=== PATIENT | female | born 1980 | race Caucasian/White ===

== ENCOUNTER → 2021-05-27 12:57 | Outpatient (REF) | payer OTHER, SELFPAY ==
--- NOTE | 2021-05-27 | ECG_ITS ---
Hook-up date: 2021-05-27 13:14:00 Duration: 26:11:00 Test Indications: PALPITATIONS Medications: 650121 QRS complexes * Ventricular ectopics which represent % of total QRS comp. 149 Supraventricular ectopics which represent <1 % of total QRS comp. * Paced QRS complexs which represent % of total QRS comp. VENTRICULAR ECTOPY * Isolated * Bigeminal Cycles * Couplets * Runs * Beats in Runs * Beats LONGEST at * BPM at :: -- * Beats FASTEST at * BPM at :: -- SUPRAVENTRICULAR ECTOPY 137 Isolated 0 Couplets 1 Runs 12 Beats in Runs 12 Beats LONGEST at 135 BPM at 15:14:46 2021-05-27 12 Beats FASTEST at 135 BPM at 15:14:46 2021-05-27 HEART RATES 58 MIN at 07:24:07 2021-05-28 92 AVG 145 MAX at 16:07:09 2021-05-27 LONGEST RR 1.1040 secs at 07:16:29 2021-05-28 S-T LEVELS Channel 1 - 128 mm at 13:14:00 2021-05-27 - 128 mm at 13:14:00 2021-05-27 Channel 2 - 128 mm at 13:14:00 2021-05-27 - 128 mm at 13:14:00 2021-05-27 Channel 3 - 128 mm at 03:23:31 -- - 128 mm at 03:23:31 Basic rhythm Normal sinus rhythm No long pause or profound bradycardia Occasional Premature atrial complexes One 12 beat run of PAT at 135 bpm Patient did not report any symptoms in the diary Referred By: Brandt Galvan Overread By: BORIS CARBAJAL MD
== END ==
LOC: HO.CARD 12:57
PROVIDERS: PCP Internal Medicine; Visit Provider Internal Medicine
DX: R00.2 Palpitations (principal)
CPT/HCPCS: 93226

== ENCOUNTER 2022-03-01 03:48 | Emergency (ER) | payer OTHER, SELFPAY ==
[2022-03-01 04:16] VITALS: BP 168/87; PULSE 86; RESP 16; TEMP 36.5; O2SAT 96; BMI 53.0
--- NOTE | 2022-03-01 05:50 | ED_ITS ---
HPI - General Adult General Chief complaint: General Medical Stated complaint: Rectal pain Time Seen by Provider: 03/01/22 05:23 Source: patient Mode of arrival: ambulatory History of Present Illness HPI narrative: 42-year-old female with a history of IBS comes in for rectal pain that initially started on Tuesday and has persisted throughout the weekend with exacerbation by bowel movements and she has noted some bleeding after pooping. She denies any fever, chills, shortness of breath, chest pain/palpitations. Related Data Allergies Allergy/AdvReac Type Severity Reaction Status Date / Time No Known Allergies Allergy Unknown NONE Unverified 01/31/20 17:03 seafood Allergy Unknown anaphylaxis Uncoded 04/14/16 00:00 Review of Systems Review of Systems: Pertinent positives and negatives as stated in HPI 10 point review of systems is otherwise negative. PMFSH Past Medical History Source: nursing notes reviewed Social History Social History Advance Directives: No Advance Directives Information Provided: No Physical Exam ED Vital Signs: Vital Signs - 24 hr 03/01/22 04:16 Temperature 97.7 F Pulse Rate 86 Respiratory Rate 16 Blood Pressure 168/87 H Pulse Oximetry 96 Oxygen Delivery Method Room Air BMI result Body Mass Index 53.0 VITAL SIGNS: Reviewed. GENERAL: Well developed, well nourished, in no acute distress. HEAD: Normocephalic/atraumatic EYES: PERRLA, EOMI EARS: Ext canals without abnormality OROPHARYNX: no oral lesions noted, posterior pharynx clear LUNGS: Normal breath sounds. No adventitious sounds or accessory muscle use. SpO2<96> CARDIOVASCULAR: Regular rate and rhythm without noted murmurs ABDOMEN: Soft, non-tender, non-distended with bowel sounds. CORINNE: There are noninflamed hemorrhoids noted but fissure identified on 3 o'clock position, brown stool no blood noted MUSCULOSKELETAL: No tenderness, deformities, or effusions noted on gross inspection. EXTREMITIES: No cyanosis, clubbing or edema. SKIN: Inspection of the skin reveals no rashes NEUROLOGIC: Alert and oriented x 4. Strength and sensation to light touch were grossly intact x 4. Course Course Course Narrative: 42-year-old female with history and clinical presentation consistent with fissure likely secondary to multiple episodes of diarrhea. Patient is otherwise hemodynamically stable, and received lidocaine for topical application. Patient is otherwise discharged home in stable condition. Discharge Plan Discharge Clinical Impression: Anal fissure Patient Disposition: Home, Self-Care Instructions: Anal Fissure (ED), Sitz Bath (DC) Additional Instructions: 1. Apply the viscous lidocaine every 6 hours as needed for symptom relief. 2. Recommend using a donut for relief of pressure on your rectum. 3. Also recommend Sitz baths after each bowel movement. 4. Follow-up with your primary care provider in the next 2-3 days for re- evaluation and further outpatient management. Return to the ER for worsening symptoms. Referrals: Brandt Wong MD [Primary Care Provider] - Stand Alone Forms: Work/School Release
[2022-03-01] MEDS: Lidocaine HCl 2 % Urojet 10 ML JEL.PF.APP TOPICAL (05:57)
== END 2022-03-01 06:03 | disposition home or self-care (01) ==
PROVIDERS: Emergency Provider Student in an Organized Health Care Education/Training Program; PCP Internal Medicine
DX: K60.2 Anal fissure, unspecified (principal); R19.7 Diarrhea, unspecified
CPT/HCPCS: 99283

== ENCOUNTER 2022-04-10 16:19 | Emergency (ER) | payer MEDICAID, SELFPAY ==
--- NOTE | 2022-04-10 17:08 | ED.GENADULT ---
HPI - General Adult General Chief complaint: GI Bleed Stated complaint: rectal pain Time Seen by Provider: 04/10/22 18:30 Related Data Previous Rx's Medication Instructions Recorded dibucaine 1 % topical ointment 1 appl topical QID PRN Rectal pain 04/10/22 #30 grams Allergies Allergy/AdvReac Type Severity Reaction Status Date / Time No Known Allergies Allergy Unknown NONE Unverified 01/31/20 17:03 seafood Allergy Unknown anaphylaxis Uncoded 04/14/16 00:00 Physical Exam ED Vital Signs: BMI result Body Mass Index 51.9 Course Course Course Narrative: RME: Patient is a 42 year old female with pmhx diabetes, asthma who presents to the ED for rectal pain. States she was diagnosed with internal hemorrhoids 1 month ago. Reports worsening pain, rectal bleeding, bright red blood. Has tried topical creams without improvement. Denies fevers, chills, nausea, vomiting, constipation or diarrhea. Denies dizziness, lightheadedness, chest pain, shortness of breath. Plan: Requires rectal examination. Medications Administered Discontinued Medications Generic Name Dose Route Start Last Admin Trade Name Freq PRN Reason Stop Dose Admin Dibucaine 1 appl 04/10/22 18:36 04/10/22 20:44 Dibucaine 1 % Oint 28 Gm Tube TOPICAL 04/10/22 18:37 1 appl ONCE ONE Administration Protocol Hydrocortisone 1 appl 04/10/22 18:36 04/10/22 20:45 Hydrocortisone 2.5 % Rectal Cr 30 Gm Tube [place] 04/10/22 18:37 1 appl ONCE ONE Administration Oxycodone HCl 5 mg 04/10/22 19:23 04/10/22 19:49 Oxycodone Hcl Immed Release 5 Mg Tablet PO 04/10/22 19:24 5 mg ONCE ONE Administration Discharge Plan Discharge Clinical Impression: Hemorrhoids, Pain in rectum, Rectal bleeding Patient Disposition: Home, Self-Care Instructions: Hemorrhoids (ED), Rectal Bleeding (ED), Rectal Pain (ED) Additional Instructions: Please use Dibucaine and hydrocortisone cream as directed. I have referred you to Dr. Ward for surgical consult for hemorrhoidectomy. Please call and request an appointment. Follow-up with Dr. Webster for colonoscopy. While you do have known hemorrhoids, you do have rectal pain and rectal bleeding. Rectal bleeding could indicate colon cancer. It is very important that you call and request an appointment for evaluation as you have had diarrhea, rectal bleeding, rectal pain, anal fissure, and hemorrhoids. Please use Sitz baths as discussed, use MiraLax twice a day to help soften stools. Thank you for choosing this emergency department for evaluation. Please follow-up with primary care physician as needed. Return to the emergency department for any new, concerning, or worsening symptoms. Prescriptions: New dibucaine 1 % ointment 1 appl topical QID PRN (Reason: Rectal pain) Qty: 30 0RF Referrals: Greta Webster MD [Physician] - 3 days (Rectal bleeding, rectal pain, hemorrhoids, anal fissure, diarrhea) Ganesh Ward MD [Physician] - 3 days (Hemorrhoids) Interventions: ED Discharge Assessment Last Done: 04/10/22 20:45 Discharge Date/Time: 04/10/22 20:45
[2022-04-10 17:10] VITALS: BP 152/96; PULSE 102; RESP 22; TEMP 36.7; O2SAT 96; BMI 51.9
--- NOTE | 2022-04-10 18:35 | ED.GIBLEED ---
HPI - GI Bleed General Chief complaint: GI Bleed Stated complaint: rectal pain Time Seen by Provider: 04/10/22 18:30 Source: patient Mode of arrival: ambulatory Limitations: no limitations History of Present Illness HPI Narrative: 42-year-old female presents with rectal pain, hemorrhoids, rectal bleeding, and difficulty sitting. She was evaluated at this facility on 03/01/2022 and was diagnosed with an anal fissure and hemorrhoids. She was evaluated by her primary care physician who prescribed her some lidocaine which is ineffective at this time. Patient states that she keeps applying medications, but has no relief. MD complaint: blood on toilet paper and blood streaked stool Onset (ago): week(s) (2) Pain Consistency: intermittent Severity: moderate Relieving factors: none Exacerbating factors: movement and other (Sitting) Context: hemorrhoids Treatments Prior to Arrival: topical ointment and suppositories Related Data Previous Rx's Medication Instructions Recorded dibucaine 1 % topical ointment 1 appl topical QID PRN Rectal pain 04/10/22 #30 grams Allergies Allergy/AdvReac Type Severity Reaction Status Date / Time No Known Allergies Allergy Unknown NONE Unverified 01/31/20 17:03 seafood Allergy Unknown anaphylaxis Uncoded 04/14/16 00:00 Review of Systems Review of Systems: Constitutional: No Fever, No Chills ENT/Mouth: No Ear Pain, No Hoarseness, No sore throat Eyes: No Eye Pain, No Swelling, No Redness, No Foreign Body Cardiovascular: No Chest Pain, No SOB Respiratory: No Cough, No Dyspnea Gastrointestinal: Positive rectal pain, positive rectal bleeding, positive hemorrhoids, No Nausea, No Vomiting, No Diarrhea, No abdominal Pain Genitourinary: No Dysuria, No Hematuria Musculoskeletal: No joint pain, No Myalgias, No Joint Swelling Skin: No Skin lacerations, No rash Neuro: No Weakness, No Numbness, No Paresthesias, No Loss of Consciousness, No Dizziness, No Headache Psych: No Anxiety/Panic, No Depression Heme/Lymph: no easy bruising, no Lymphadenopathy Endocrine: No Polyuria, No Polydipsia Yes all other systems are reviewed and are negative PMFSH Past Medical History Attestation statement: The following information was validated with the patient. Source: old records reviewed Social History Social History Advance Directives: No Advance Directives Information Provided: Yes Physical Exam Vital Signs: Vital Signs: Last Vital Signs Temp 97.3 F 04/10/22 19:00 Pulse 99 04/10/22 19:00 Resp 20 04/10/22 19:00 BP 145/94 H 04/10/22 19:00 Pulse Ox 98 04/10/22 19:00 O2 Del Method 04/10/22 19:00 BMI result Body Mass Index 51.9 Appearance: Alert. Oriented X3. Moderate distress. Eyes: Pupils equal, round and reactive to light. ENT: Pharynx normal. Neck: Normal inspection. Neck supple. CVS: Normal heart rate and rhythm. Pulses normal. Respiratory: No respiratory distress. Breath sounds normal. Abdomen: Soft and nontender. Genitourinary: Thrombosed external hemorrhoids Skin: Skin warm and dry. Normal skin color. Normal skin turgor. Extremities: No lower extremity edema. Gait well-balanced well coordinated. Neuro: No motor deficit. No sensory deficit. Cranial nerves 2-12 intact. Course Course Course Narrative: 42-year-old female presents with 10/10 rectal pain, hemorrhoids, intermittent bright red blood per rectum, rectal pressure, intermittent diarrhea with IBS. Patient has been using topical ointment prescribed by her primary care physician with poor effect. Visual exam indicates thrombosed hemorrhoids externally, extraordinarily tender, normal rectal tone, internal hemorrhoids noted. Will order dB cane and hydrocortisone cream. Patient states to have significant pressure in her rectum during bowel movements. I did stress the importance of following up with Gastroenterology to rule out colorectal cancer. She does not have a family history of colorectal cancer, and does not report abnormal weight loss. Patient appears to be in severe pain, I will give 1 tablet of oxycodone while patient is in the emergency department. Patient is afebrile, appears nontoxic, she is tachycardic however I feel that this tachycardia is directly related to pain. 19:24 plan of care is to discharge home, patient does understand the importance of colonoscopy for rectal bleeding although she does have known hemorrhoids, rectal bleeding could always be colon cancer. I have referred to Dr. Webster for GI consult as well as Dr. Ward for hemorrhoidectomy consult. Patient verbalized understanding of and agrees to plan of care. Verbalized understanding of signs and symptoms indicating need for emergent intervention. Medications Administered Discontinued Medications Generic Name Dose Route Start Last Admin Trade Name Tom PRN Reason Stop Dose Admin Dibucaine 1 appl 04/10/22 18:36 04/10/22 20:44 Dibucaine 1 % Oint 28 Gm Tube TOPICAL 04/10/22 18:37 1 appl ONCE ONE Administration Protocol Hydrocortisone 1 appl 04/10/22 18:36 04/10/22 20:45 Hydrocortisone 2.5 % Rectal Cr 30 Gm Tube [place] 04/10/22 18:37 1 appl ONCE ONE Administration Oxycodone HCl 5 mg 04/10/22 19:23 04/10/22 19:49 Oxycodone Hcl Immed Release 5 Mg Tablet PO 04/10/22 19:24 5 mg ONCE ONE Administration MDM - GI Bleed Differential Diagnosis Differential diagnosis: Likely hemorrhoids and anal fissure Medical Records Attestation: I reviewed the patient's medical records. Discharge Plan Discharge Clinical Impression: Hemorrhoids, Pain in rectum, Rectal bleeding Patient Disposition: Home, Self-Care Instructions: Hemorrhoids (ED), Rectal Bleeding (ED), Rectal Pain (ED) Additional Instructions: Please use Dibucaine and hydrocortisone cream as directed. I have referred you to Dr. Ward for surgical consult for hemorrhoidectomy. Please call and request an appointment. Follow-up with Dr. Webster for colonoscopy. While you do have known hemorrhoids, you do have rectal pain and rectal bleeding. Rectal bleeding could indicate colon cancer. It is very important that you call and request an appointment for evaluation as you have had diarrhea, rectal bleeding, rectal pain, anal fissure, and hemorrhoids. Please use Sitz baths as discussed, use MiraLax twice a day to help soften stools. Thank you for choosing this emergency department for evaluation. Please follow-up with primary care physician as needed. Return to the emergency department for any new, concerning, or worsening symptoms. Prescriptions: New dibucaine 1 % ointment 1 appl topical QID PRN (Reason: Rectal pain) Qty: 30 0RF Referrals: Greta Webster MD [Physician] - 3 days (Rectal bleeding, rectal pain, hemorrhoids, anal fissure, diarrhea) Ganesh Ward MD [Physician] - 3 days (Hemorrhoids) Interventions: ED Discharge Assessment Last Done: 04/10/22 20:45 Discharge Date/Time: 04/10/22 20:45
[2022-04-10 19:00] VITALS: BP 145/94; PULSE 99; RESP 20; TEMP 36.3; O2SAT 98
[2022-04-10] MEDS: oxyCODONE HCl Immed Release 5 MG TABLET PO (19:49)
[2022-04-10] MEDS: Hydrocortisone 2.5 % Rectal Cr 30 GM TUBE 1 APPL PR (20:45)
== END 2022-04-10 20:45 | disposition home or self-care (01) ==
PROVIDERS: Emergency Provider Emergency Medicine
DX: K64.5 Perianal venous thrombosis (principal); K64.8 Other hemorrhoids; K62.5 Hemorrhage of anus and rectum; K62.89 Other specified diseases of anus and rectum; R00.0 Tachycardia, unspecified
CPT/HCPCS: 99283

== ENCOUNTER → 2022-04-19 09:10 | Outpatient (BNVA) | payer MEDICAID, SELFPAY | PROVIDERS: PCP Internal Medicine; Visit Provider Surgery | DX: K60.2 Anal fissure, unspecified (principal) | CPT/HCPCS: 99202 ==

== ENCOUNTER → 2022-05-20 15:35 | Outpatient (BNVA) | payer MEDICAID, SELFPAY | PROVIDERS: PCP Internal Medicine; Visit Provider Surgery | DX: K60.2 Anal fissure, unspecified (principal) | CPT/HCPCS: 99212 ==

== ENCOUNTER 2023-03-02 09:04 | Outpatient (REF) | payer MEDICAID, SELFPAY ==
[2023-03-02 14:46] LABS: MANUAL DIFF FLAG NO
[2023-03-02 14:57] LABS: Basophils Absolute Auto 0.1 X10*3/uL (0.0-0.2); Basophils Percent Auto 0.7 % (0-2); Eosinophils Absolute Auto 0.4 X10*3/uL (0.0-0.4); Eosinophils Percent Auto 4.4 % (0-4); Hematocrit 36.1 % (37.0-47.0); Hemoglobin 10.8 g/dl (12.0-16.0); Imm Gran Abs Auto 0.03 X10*3/uL (0.00-0.03); Imm Gran Pct Auto 0.3 % (0.0-0.4); Lymphocytes Absolute Auto 1.7 X10*3/uL (1.2-4.9); Lymphocytes Percent Auto 19.7 % (20-40); Mean Corpuscular HGB Conc 29.9 g/dl (31.0-35.0); Mean Corpuscular Hemoglobin 22.6 pg (27.0-33.0); Mean Corpuscular Volume 75.7 fL (80.0-98.0); Monocytes Absolute Auto 0.7 X10*3/uL (0.1-1.2); Monocytes Percent Auto 8.3 % (2-11); Neutrophils Absolute Auto 5.9 x10*3/uL (2.0-8.3); Neutrophils Percent Auto 66.6 % (45-73); Platelet Count 360 X10*3/uL (160-400); Red Blood Count 4.77 X10*6/uL (4.20-5.50); Red Cell Distribution Width 18.6 % (11.0-16.0); White Blood Count 8.8 X10*3/uL (4.8-10.8)
[2023-03-02 15:02] LABS: Estimated Average Glucose 174 mg/dL; Hemoglobin A1C 151.1929 umol/L; Hemoglobin A1c % 7.7 % (<6.0)
[2023-03-02 15:19] LABS: Alanine Aminotransferase 39 U/L (0-31); Albumin Level 3.6 g/dL (3.5-5.0); Alkaline Phosphatase 88 U/L (39-117); Anion Gap 13 (12-20); Aspartate Amino Transferase 34 U/L (5-31); Bilirubin Total 0.4 mg/dL (0.0-1.0); Blood Urea Nitrogen 11 mg/dL (9-16); Calcium 9.7 mg/dL (8.4-10.2); Carbon Dioxide 25 mmol/L (22-29); Chloride 102 mmol/L (96-108); Cholesterol 208 mg/dL (<200); Estimated Glomerular Filt Rate > 60; Glucose Fasting 185 mg/dL (60-99); HDL Cholesterol 61 mg/dL (>40); LDL Cholesterol Calculated 118 mg/dL (<100); Potassium 4.2 mmol/L (3.3-5.1); Sodium 136 mmol/L (135-145); Total Protein 7.3 g/dL (6.5-8.0); Triglycerides 147 mg/dL (<150)
[2023-03-02 15:31] LABS: Creatinine Urine 167.09 mg/dL; Microalbum/Creatinine Ratio Ur 29.9 ug/mg cr (<30)
== END 2023-03-02 09:05 | disposition home or self-care (01) ==
LOC: HO.CHCLDS 09:04
PROVIDERS: Visit Provider Internal Medicine
DX: E11.9 Type 2 diabetes mellitus without complications (principal)
CPT/HCPCS: 36415; 80053; 80061; 82043; 82570; 83036; 85025

== ENCOUNTER 2023-03-25 12:41 | Outpatient (REF) | payer MEDICAID, SELFPAY ==
[2023-03-25 14:45] LABS: Alanine Aminotransferase 23 U/L (0-31); Albumin Level 3.6 g/dL (3.5-5.0); Alkaline Phosphatase 91 U/L (39-117); Anion Gap 8 (12-20); Aspartate Amino Transferase 21 U/L (5-31); Bilirubin Total 0.3 mg/dL (0.0-1.0); Blood Urea Nitrogen 10 mg/dL (9-16); Calcium 9.6 mg/dL (8.4-10.2); Carbon Dioxide 29 mmol/L (22-29); Chloride 101 mmol/L (96-108); Estimated Glomerular Filt Rate > 60; Glucose Random 315 mg/dL (60-115); Iron 23 mcg/dL (30-160); Percent Iron Saturation 6 % (15-50); Sodium 134 mmol/L (135-145); Total Iron Binding Capacity 385 mcg/dL (228-428); Total Protein 7.1 g/dL (6.5-8.0); Unsaturated Iron Binding 362 ug/dL
[2023-03-25 15:01] LABS: Creatinine Urine 71.41 mg/dL; Microalbum/Creatinine Ratio Ur 15.4 ug/mg cr (<30)
== END 2023-03-25 12:42 | disposition home or self-care (01) ==
LOC: HO.CHCLDS 12:41
PROVIDERS: Visit Provider Internal Medicine
DX: E11.9 Type 2 diabetes mellitus without complications (principal); D64.9 Anemia, unspecified
CPT/HCPCS: 36415; 80053; 82043; 82570; 83540

== ENCOUNTER 2023-04-04 16:02 | Outpatient (REF) | payer MEDICAID, SELFPAY ==
--- NOTE | ~2023-04-04 | MM_ITS ---
EXAMINATION: MM SCREENING DIGITAL BREAST TOMOSYNTHESIS, BILATERAL CLINICAL INFORMATION: Screening. Asymptomatic. COMPARISON: Mammography: There are no prior mammograms for comparison. This is a baseline study. TECHNIQUE: Digital breast tomosynthesis is performed in both the craniocaudal and mediolateral oblique views along with computer-aided detection (CAD). Synthesized 2D images are generated from the tomosynthesis. FINDINGS: There are scattered areas of fibroglandular density (ACR BI-RADS breast composition Category b). There are no significant masses, abnormal calcifications, or other abnormalities. MM/MM tomosynthesis screening BI IMPRESSION: No mammographic evidence of malignancy. ASSESSMENT: BI-RADS BI-RADS 1 - Negative RECOMMENDATION: Routine annual mammography screening. 1 year F/U This examination should not preclude the clinical evaluation of a suspicious palpable abnormality. This patient's information was entered into a reminder system with a target due date for their next mammogram.
== END 2023-04-04 16:03 | disposition home or self-care (01) ==
LOC: HO.MAMMO 16:02
PROVIDERS: PCP Internal Medicine; Visit Provider Internal Medicine
DX: Z12.31 Encounter for screening mammogram for malignant neoplasm of breast (principal)
CPT/HCPCS: 77063; 77067

== ENCOUNTER → 2023-04-04 16:30 | Outpatient (BNV) | payer MEDICAID, SELFPAY | PROVIDERS: PCP Internal Medicine; Visit Provider Radiology Diagnostic Radiology | DX: Z12.31 Encounter for screening mammogram for malignant neoplasm of breast (principal) | CPT/HCPCS: 77063; 77067 ==

== ENCOUNTER 2023-09-08 16:17 | Outpatient (REF) | payer MEDICAID, SELFPAY ==
[2023-09-12 23:24] LABS: HPV mRNA E6/E7 rflx Not Detected (Not Detected)
== END 2023-09-08 16:18 | disposition home or self-care (01) ==
LOC: HO.HHCLNP 16:17
PROVIDERS: Visit Provider Advanced Practice Midwife
DX: Z01.419 Encounter for gynecological examination (general) (routine) without abnormal findings (principal)
CPT/HCPCS: 87624; 88142

== ENCOUNTER 2024-03-08 13:45 | Outpatient (REF) | payer MEDICAID, SELFPAY ==
[2024-03-09 08:23] LABS: Syphilis Screen Nonreactive (Nonreactive)
[2024-03-09 08:29] LABS: HIV AB/AG Nonreactive (Nonreactive); HIV Num 1 0.29 S/CO (0.00-0.99); ~HepC Num1 0.08 S/CO (0.00-0.79); ~Hepatitis C Antibody Nonreactive (Nonreactive)
== END 2024-03-08 13:46 | disposition home or self-care (01) ==
LOC: HO.CHCLDS 13:45
PROVIDERS: Visit Provider Internal Medicine
DX: Z20.2 Contact with and (suspected) exposure to infections with a predominantly sexual mode of transmission (principal)
CPT/HCPCS: 36415; 86780; 86803; 87389

== ENCOUNTER 2024-03-10 09:21 | Outpatient (REF) | payer MEDICAID, SELFPAY ==
[2024-03-10 10:05] LABS: MANUAL DIFF FLAG NO
[2024-03-10 10:11] LABS: Basophils Absolute Auto 0.1 X10*3/uL (0.0-0.2); Basophils Percent Auto 0.5 % (0-2); Eosinophils Absolute Auto 0.6 X10*3/uL (0.0-0.4); Eosinophils Percent Auto 6.4 % (0-4); Hematocrit 41.4 % (37.0-47.0); Hemoglobin 13.7 g/dl (12.0-16.0); Imm Gran Abs Auto 0.04 X10*3/uL (0.00-0.03); Imm Gran Pct Auto 0.4 % (0.0-0.4); Lymphocytes Absolute Auto 1.9 X10*3/uL (1.2-4.9); Lymphocytes Percent Auto 19.5 % (20-40); Mean Corpuscular HGB Conc 33.1 g/dl (31.0-35.0); Mean Corpuscular Hemoglobin 30.1 pg (27.0-33.0); Mean Platelet Volume 10.4 fL (9.4-12.3); Monocytes Absolute Auto 0.7 X10*3/uL (0.1-1.2); Monocytes Percent Auto 7.5 % (2-11); Neutrophils Absolute Auto 6.3 x10*3/uL (2.0-8.3); Neutrophils Percent Auto 65.7 % (45-73); Platelet Count 282 X10*3/uL (160-400); Red Blood Count 4.55 X10*6/uL (4.20-5.50); Red Cell Distribution Width 13.7 % (11.0-16.0); White Blood Count 9.6 X10*3/uL (4.8-10.8)
[2024-03-10 10:23] LABS: Estimated Average Glucose 123 mg/dL; Hemoglobin A1C 139.3587 umol/L; Hemoglobin A1c % 5.9 % (<6.0); Total Hemoglobin (HGBA1C) 3407.6921 umol/L
[2024-03-10 10:24] LABS: Alanine Aminotransferase 37 U/L (0-31); Albumin Level 3.8 g/dL (3.5-5.0); Alkaline Phosphatase 62 U/L (39-117); Anion Gap 10 (12-20); Aspartate Amino Transferase 30 U/L (5-31); Bilirubin Direct 0.3 mg/dL (0.0-0.5); Bilirubin Total 0.6 mg/dL (0.0-1.0); Blood Urea Nitrogen 13 mg/dL (9-16); Calcium 9.6 mg/dL (8.4-10.2); Carbon Dioxide 25 mmol/L (22-29); Chloride 107 mmol/L (96-108); Cholesterol 143 mg/dL (<200); Estimated Glomerular Filt Rate > 60; Glucose Random 133 mg/dL (60-115); HDL Cholesterol 57 mg/dL (>40); Iron 70 mcg/dL (30-160); LDL Cholesterol Calculated 70 mg/dL (<100); Percent Iron Saturation 21 % (15-50); Potassium 4.2 mmol/L (3.3-5.1); Sodium 138 mmol/L (135-145); Total Iron Binding Capacity 339 mcg/dL (228-428); Total Protein 7.1 g/dL (6.5-8.0); Triglycerides 83 mg/dL (<150); Unsaturated Iron Binding 269 ug/dL
[2024-03-10 11:01] LABS: Folate 11.3 ng/mL (> or = 4.0); Vitamin B12 644 pg/mL (200-900)
== END 2024-03-10 09:22 | disposition home or self-care (01) ==
LOC: HO.LAB 09:21
PROVIDERS: PCP Internal Medicine; Visit Provider Internal Medicine
DX: E11.65 Type 2 diabetes mellitus with hyperglycemia (principal); E78.2 Mixed hyperlipidemia; D50.9 Iron deficiency anemia, unspecified
CPT/HCPCS: 36415; 80053; 80061; 82248; 82607; 82746; 83036; 83540; 85025

== ENCOUNTER 2024-04-09 14:50 | Outpatient (REF) | payer MEDICAID, SELFPAY ==
--- NOTE | ~2024-04-09 | MM_ITS ---
EXAMINATION: MM SCREENING DIGITAL BREAST TOMOSYNTHESIS, BILATERAL CLINICAL INFORMATION: Screening. Asymptomatic. COMPARISON: Mammography: Comparison is made with available priors TECHNIQUE: Digital breast mammography with tomosynthesis is performed in both the craniocaudal and mediolateral oblique views along with computer-aided detection (CAD). FINDINGS: There are scattered areas of fibroglandular density (ACR BI-RADS breast composition Category b). There are no significant masses, abnormal calcifications, or other abnormalities. MM/MM tomosynthesis screening BI IMPRESSION: No mammographic evidence of malignancy. ASSESSMENT: BI-RADS BI-RADS 1 - Negative RECOMMENDATION: Routine annual mammography screening. 1 year F/U This examination should not preclude the clinical evaluation of a suspicious palpable abnormality. This patient's information was entered into a reminder system with a target due date for their next mammogram. Electronically signed by: Jada Cohn DO 04/19/2024 09:22 AM SHELBY
== END 2024-04-09 14:51 | disposition home or self-care (01) ==
LOC: HO.MAMMO 14:50
PROVIDERS: PCP Internal Medicine; Visit Provider Internal Medicine
DX: Z12.31 Encounter for screening mammogram for malignant neoplasm of breast (principal)
CPT/HCPCS: 77063; 77067

== ENCOUNTER → 2024-04-09 15:00 | Outpatient (BNV) | payer MEDICAID, SELFPAY | PROVIDERS: PCP Internal Medicine; Visit Provider Internal Medicine | DX: Z12.31 Encounter for screening mammogram for malignant neoplasm of breast (principal) | CPT/HCPCS: 77063; 77067 ==

== ENCOUNTER 2024-07-18 12:03 | Outpatient (REF) | payer SELFPAY ==
[2024-07-18 14:21] LABS: TSH reflex Free T4 0.97 uIU/mL (0.32-4.0)
--- OUTSIDE RECORDS SUMMARY | 2024-07-18 14:29 | XMS_ITS | Encounter Summary ---
Author Organization [employer] Address [address] [place] [address] Care Team Providers Care Belt Molder Name Role Phone Brandt Wong MD Primary Care Prov ider Reason for Visit * Reason Onset Date Comments Results 04/05/2023 Encounter Details Date Type Department Care Team ([facility] Contact Info) Description 04/05/2023 Telephone [facility] [address] [place], [place] [phone] Brandt Wong MD [address] [place] [address] Results Social History Tobacco Use Types Packs/Day Years Used Date Smoking Tobacco: Never Smokeless Tobacco: Never Alcohol Use Standard Drinks/Week Comments Yes 0 (1 standard drink = 0.6 oz pur e alcohol) social Depression Answer Date Recorded Patient Health Questionnaire-9 Score 0 07/07/2022 Housing Stability Answer Date Recorded What is your housing situation today? I have roseline jennings 02/28/[address] you li ve. Do you have problems with any of the following? None of the above 02/28/2023 Food Insecurity Answer Date Recorded Within the past 12 months, y ou worried that your food would run out before you got money to buy more: Never True 02/28/2023 Within the past 12 months,th e food you bought just didn't last and you didn't have enough money to get more: Never True Transportation Answer Date Recorded In the past 12 months, has l ack of transportation kept you from medical appts, meetings, work or from getting things needed for daily living? No 02/28/2023 Utilities Answer Date Recorded In the past 12 months, has t he electric, gas, oil or water company threatened to shut off services in your home? No 02/28/2023 Depression Answer Date Recorded Patient Health Questionnaire-2 Score 0 07/07/2022 Comments Unknown Sex and Gender Information Value Date Recorded Sex Assigned at Female 03/15/2022 10:17 AM EDT Legal Sex Female 10:17 AM EDT Gender Identity Female 03/15/2022 10:17 AM EDT Sexual Orientation Straight 03/15/2022 10 :17 AM EDT documented as of this encounter Miscellaneous Notes * Telephone Encounter - Sathya Vogel - 04/06/2023 3:56 PM EST Tc from patient requesting a call back in regards to message below * Telephone Encounter - Titi Flowers - 04/06/2023 10:54 AM EST Tc from pt regarding message above requesting call back. * Telephone Encounter - Sachi Brambila RN - 04/06/2023 10:42 AM EST Tc from pt requesting lab results done on 03/25. Please contact pt at [phone] TC placed to patient regarding above request for lab results. No answer. LM to call us back. Labs have some abnormal results. Patient has follow-up appointment with Dr. Alfonso on 04/25/23. Routing message to Dr. Aflonso for review. * Telephone Encounter - Renetta Sher - 04/05/2023 4:12 PM EST Tc from pt requesting lab results done on 03/25. Please contact pt at [phone] documented in this encounter Plan of Treatment Upcoming Encounters Date Type Department Care Team (Late st Contact Info) Description 10/05/2024 9:30 AM EDT Office Visit [facility] [address] [place] [address] Brandt Wong MD [address] [place] [address] documented as of this encounter Visit Diagnoses Not on filedocumented in this encounter Additional Health Concerns Assessment Noted Time PHQ-9 Depression Total Score: 0 07/07/19 23 3:30 PM EST documented as of this encounter Care Teams Belt Molder Relationship Specialty Start Date End Date Brandt Wong MD [address] [place] [address] PCP - General Internal Medicine 10/14/19 documented as of this encounter
--- OUTSIDE RECORDS SUMMARY | 2024-07-18 14:29 | XMS_ITS | Encounter Summary ---
Author Organization [employer] Address [address] [place] [address] Care Team Providers Care [employer] Name Role Phone Brandt Wong MD Primary Care Prov ider Encounter Details Date Type Department Care Team ([facility] st Contact Info) Description 04/06/2023 Telephone [facility] [address] [place], [place] [phone] Brandt Wong MD [address] [place], [place] [phone] Social History Tobacco Use Types Packs/Day Years [...] AM EDT documented as of this encounter Plan of Treatment Upcoming Encounters Date Type Department Care Team (Late st Contact Info) Description 10/05/2024 9:30 AM EDT Office Visit [facility] [address] [place] [address] Brandt Wong MD [address] [place] [address] documented as of this encounter Visit Diagnoses Not on filedocumented in this encounter Additional Health Concerns Assessment Noted Time PHQ-9 Depression Total Score: 0 07/07/19 23 3:30 PM EST documented as of this encounter Care Teams [employer] Intern[employer] Relationship Specialty Start Date End Date Brandt Wong MD [address] [place] [address] PCP - General Internal Medicine 10/14/19 documented as of this encounter
--- OUTSIDE RECORDS SUMMARY | 2024-07-18 14:29 | XMS_ITS | Encounter Summary ---
Author Organization [employer] Address [address] [place] [address] Care Team Providers Care Family Consumer Scientist Name Role Phone Brandt Wong MD Primary Care Prov ider Reason for Visit * Reason Onset Date Comments Nurse Triage 07/17/2024 Encounter Details Date Type Department Care Team ([facility] st Contact Info) Description 07/17/2024 Telephone [facility] [address] [place], [place] [phone] Brandt Wong MD [address] [place] [address] Nurse Triage Social History Tobacco Use Types Packs/Day Years Used Date Smoking Tobacco: Never Smokeless Tobacco: Never Alcohol Use Standard Drinks/Week Comments Yes 0 (1 standard drink = 0.6 oz pur e alcohol) social Depression Answer Date Recorded Patient Health Questionnaire-9 Score 0 09/28/2023 Patient Health Questionnaire-9 Score 0 09/28/2023 Last PHQ-9: Questionnaire Data Not on file 0 09/28/2023 Housing Stability Answer Date Recorded What is your housing situation today? I have roseline jennings 09/28/[address] you li ve. Do you have problems with any of the following? None of the above 09/28/2023 Food Insecurity Answer Date Recorded Within the past 12 months, y ou worried that your food would run out before you got money to buy more: Never True 09/28/2023 Within the past 12 months,th e food you bought just didn't last and you didn't have enough money to get more: Never True Transportation Answer Date Recorded In the past 12 months, has l ack of transportation kept you from medical appts, meetings, work or from getting things needed for daily living? No 09/28/2023 Utilities Answer Date Recorded In the past 12 months, has t he electric, gas, oil or water company threatened to shut off services in your home? No 09/28/2023 Depression Answer Date Recorded Patient Health Questionnaire-2 Score 0 09/28/2023 Comments Unknown Sex and Gender Information Value Date Recorded Sex Assigned at Female 03/15/2022 10:17 AM EDT Legal Sex Female 10:17 AM EDT Gender Identity Female 03/15/2022 10:17 AM EDT Sexual Orientation Straight 03/15/2022 10 :17 AM EDT documented as of this encounter Miscellaneous Notes * Telephone Encounter - April Chadwick RN - 07/17/2024 11:59 AM EST Called pt. Pt. States that she was supposed to get menses on 06/16/24. Pt did get menses 2 weeks after she was due for menses on 07/08/24 and has had heavy bleeding since with clots-red no tissue noted. Pt did 3 urine tests which came back Negative. Pt. Has small amounts of cramps. This hasnot happened before so pt. Is wondering if she was or if she is going into menopause. Pt. Is Not on control right now. Pt. Got prescribed control but, was going to start it afterthis months menses. Pt states her menses is always the same and gets it consistently every month onthe same schedule and never has late menses. Denies any drainage, itchiness or vaginal pain. Protocol Used: Menstrual Period - Missed or Late (Adult) Protocol-Based Disposition: See in Office or Video Visit within 3 Days-appt 07/18/24 at 1130am with Graciela. Positive Triage Questions: * Wants a test done in the office * Age > 40 years * All higher-acuity triage questions were negative * Telephone Encounter - Donn Waldron - 07/17/2024 11:52 AM EST Symptom: Vaginal Bleeding - Not Outcome: Talk to a nurse or provider within 15 minutes Reason: Heavy bleeding The caller accepted this outcome. Contact pt at [phone] documented in this encounter Plan of Treatment Upcoming Encounters Date Type Department Care Team ([facility] st Contact Info) Description 10/05/2024 9:30 AM EDT Office Visit [facility] MED & PEDS [address] [place] [address] Brandt Wong MD [address] [place] [address] documented as of this encounter Visit Diagnoses Not on filedocumented in this encounter Additional Health Concerns Assessment Noted Time PHQ-9 Depression Total Score: 0 09/28/19 24 3:36 PM EDT documented as of this encounter Care Teams Family Consumer Scientist Relationship Specialty Start Date End Date Brandt Wong MD [address] [place] [address] PCP - General Internal Medicine 10/14/19 documented as of this encounter
--- OUTSIDE RECORDS SUMMARY | 2024-07-18 14:29 | XMS_ITS | Encounter Summary ---
Author Organization [employer] Address [address] [place] [address] Care Team Providers Care Millwork Estimator Name Role Phone Brandt Wogn MD Primary Care Prov ider Encounter Details Date Type Department Care Team (Latest Contact Info) Description 09/22/2018 Abstract [facility] CONVERSIONS Dental, Provider, DDS Social History Tobacco Use Types Packs/Day Years Used Date Smoking Tobacco: Never Assessed Comments Unknown Sex and Gender Information Value [...] Description 10/05/2024 9:30 AM EDT Office Visit [facility] MED & PEDS [address] [place] [address] Brandt Wong MD [address] [place] [address] documented as of this encounter Visit Diagnoses Not on filedocumented in this encounter Care Teams Millwork Estimator Relationship Specialty Start Date End Date Brandt Wong MD [address] [place] [address] PCP - General Internal Medicine 10/14/19 documented as of this encounter
--- OUTSIDE RECORDS SUMMARY | 2024-07-18 14:29 | XMS_ITS | Encounter Summary ---
Author Organization [employer] Address [address] [place] [address] [address] [place] [address] Care Team Providers Care Sales Trader Name Role Phone Brandt Wong MD Primary Care Prov ider Encounter Details Date Type Department Care Team (Late Contact Info) Description 10/07/2022 Orders Only [facility] & PEDS [address] [place] [address] Letitia Otto LPN Social History Tobacco Use Types Packs/Day Years Used Date Smoking Tobacco: Never Assessed Depression Answer Date Recorded Patient Health Questionnaire-9 Score 0 07/07/2022 Depression Answer Date Recorded Patient Health Questionnaire-2 [...] Encounters Date Type Department Care Team (Late Contact Info) Description 10/05/2024 9:30 AM EDT Office Visit [facility] PED[facility] [address] [place] [address] Brandt Wong MD [address] [place] [address] documented as of this encounter Visit Diagnoses Not on filedocumented in this encounter Additional Health Concerns Assessment Noted Time PHQ-9 Depression Total Score: 0 07/07/19 3:30 PM EST documented as of this encounter Care Teams Sales Trader Relationship Specialty Start Date End Date AlfonsoBrandt Castorena MD [address] [place] [address] PCP - General Internal Medicine 10/14/19 documented as of this encounter
--- OUTSIDE RECORDS SUMMARY | 2024-07-18 14:29 | XMS_ITS | Encounter Summary ---
Author Organization [employer] Address [address] [place] [address] Care Team Providers Care Event Representative Name Role Phone Brandt Wong MD Primary Care Prov ider Reason for Visit * Reason Onset Date Comments August Recall 07/03/2024 Encounter Details Date Type Department Care Team ([facility] st Contact Info) Description 07/03/2024 Telephone [facility] [address] [place], [place] [phone] Mariposa Lima [place] August Recall Social History Tobacco Use Types Packs/Day Years [...] encounter Miscellaneous Notes * Telephone Encounter - Mariposa Lima MA - 07/03/2024 9:29 AM EST T/c to pt to book her for an annual pelvic exam 15min no answer lvm. documented in this encounter Plan of Treatment Upcoming Encounters Date Type Department Care Team (Late st Contact Info) Description 10/05/2024 9:30 AM EDT Office Visit [facility] MED & PEDS [address] [place] [address] Brandt Wong MD [address] [place] [address] documented as of this encounter Visit Diagnoses Not on filedocumented in this encounter Additional Health Concerns Assessment Noted Time PHQ-9 Depression Total Score: 0 09/28/19 24 3:36 PM EDT documented as of this encounter Care Teams Event Representative Relationship Specialty Start Date End Date Brandt Wong MD [address] [place] [address] PCP - General Internal Medicine 10/14/19 documented as of this encounter
--- OUTSIDE RECORDS SUMMARY | 2024-07-18 14:29 | XMS_ITS | Encounter Summary ---
Author Organization [employer] Address [address] [place] [address] Care Team Providers Care Botany Professor Name Role Phone Brandt Wong MD Primary Care Prov ider Encounter Details Date Type Department Care Team ([facility] st Contact Info) Description 04/26/2023 Orders Only [facility] MED & PEDS [address] [place], [place] [phone] Brandt Wong MD [address] [place], [place] [phone] Social History Tobacco Use Types Packs/Day Years [...] Description 10/05/2024 9:30 AM EDT Office Visit [facility] MED & PEDS [address] [place] [address] Brandt Wong MD [address] [place] [address] documented as of this encounter Visit Diagnoses Not on filedocumented in this encounter Additional Health Concerns Assessment Noted Time PHQ-9 Depression Total Score: 0 07/07/19 23 3:30 PM EST documented as of this encounter Care Teams Botany Professor Relationship Specialty Start Date End Date Brandt Wong MD [address] [place] [address] PCP - General Internal Medicine 10/14/19 documented as of this encounter
--- OUTSIDE RECORDS SUMMARY | 2024-07-18 14:29 | XMS_ITS | Encounter Summary ---
Author Organization [employer] Address [address] [place] [address] Care Team Providers Care Supervisor Television Chassis Repair Name Role Phone Brandt Wong MD Primary Care Prov ider Reason for Visit * Reason Onset Date Comments Nurse Triage 10/21/2023 Encounter Details Date Type Department Care Team ([facility] st Contact Info) Description 10/21/2023 Telephone [facility] MED [facility] PEDS [address] [place], [place] [phone] Brandt Wong MD [address] [place] [address] Nurse Triage Social History Tobacco Use Types [...] encounter Miscellaneous Notes * Telephone Encounter - Sosa Naranjo RN - 10/21/2023 11:50 AM EDT Call returned to Martha Naranjo to triage below. Reports having sx of vaginal yeast. Per pt started Jardiance Rx 2 weeks ago . Per pt knows side effects can be yeast infections. Per pt has had vaginal itching x 1 week. Denies any discharge, UTI sx or pelvic pain. Per pt used Monistat 3 day OTC yeast treatment with no improvement. Pt offered SDC appt today for exam . Pt declines due to work. Advised can try Monistat 7day tx topical ointment,avoid any feminine hygiene scented products, avoid douches, wear cotton underwear and return call on Tuesday for availability or seek WIC during extended. Reviewed home care advise, ER precautions and reasons to call back. Will forward to PCP to review and further advise team PRN on plan of care. Pt also looking for status of PA for Ozempic. Will send note to PA specialist to follow up. Protocol Used: Vaginal Symptoms (Adult) Protocol-Based Disposition: See in Office or Video Visit Today or Tomorrow Positive Triage Question: * Moderate-Severe itching (i.e., interferes with school, work, or sleep) * All higher-acuity triage questions were negative Care Advice Discussed: * Antifungal Medicine for Yeast Infection * Reassurance and Education - Mild Vaginal Rash * Causes of Rash * Cleansing * Genital Hygiene * Reasons To Call Back - Rash spreads or becomes worse - Fever occurs - You become worse * Telephone Encounter - Renetta Christos - 10/21/2023 11:29 AM EDT Symptom: Medication Reaction Outcome: Schedule an urgent appointment (within 1 hour) or talk to a nurse or provider soon Reason: states empagliflozin (Jardiance) 25 MG is causing yeast infection The caller accepted this outcome documented in this encounter Plan of Treatment Upcoming Encounters Date Type Department Care Team (Late st Contact Info) Description 10/05/2024 9:30 AM EDT Office Visit [facility] MED & PEDS [address] [place] [address] Brandt Wong MD [address] [place] [address] documented as of this encounter Visit Diagnoses Not on filedocumented in this encounter Additional Health Concerns Assessment Noted Time PHQ-9 Depression Total Score: 0 09/28/19 24 3:36 PM EDT documented as of this encounter Care Teams Supervisor Television Chassis Repair Relationship Specialty Start Date End Date Brandt Wong MD [address] [place] [address] PCP - General Internal Medicine 10/14/19 documented as of this encounter
--- OUTSIDE RECORDS SUMMARY | 2024-07-18 14:29 | XMS_ITS | Encounter Summary ---
Author Organization [employer] Address [address] [place] [address] Care Team Providers Care Welt Slasher Name Role Phone Brandt Wong MD Primary Care Prov ider Reason for Visit * Reason Onset Date Comments Appointment Request 07/04/2024 Encounter Details Date Type Department Care Team ([facility] st Contact Info) Description 07/04/2024 Telephone [facility] MEDICINE [address] [place], [place] [phone] Brandt Wong MD [address] [place] [address] Appointment Request Social History Tobacco Use Types Packs/Day Years [...] encounter Miscellaneous Notes * Telephone Encounter - Juliet Stratton - 07/04/2024 4:21 PM EST Tc from pt requesting appointment to be seen for a PAP SMEAR pt denied concerns documented in this encounter Plan of Treatment Upcoming Encounters Date Type Department Care Team (Late st Contact Info) Description 10/05/2024 9:30 AM EDT Office Visit [facility] CH[facility] MED & PEDS [address] [place] [address] Brandt Wong MD [address] [place] [address] documented as of this encounter Visit Diagnoses Not on filedocumented in this encounter Additional Health Concerns Assessment Noted Time PHQ-9 Depression Total Score: 0 09/28/19 24 3:36 PM EDT documented as of this encounter Care Teams Welt Slasher Relationship Specialty Start Date End Date Brandt Wong MD [address] [place] [address] PCP - General Internal Medicine 10/14/19 documented as of this encounter
--- OUTSIDE RECORDS SUMMARY | 2024-07-18 14:29 | XMS_ITS | Encounter Summary ---
Author Organization [employer] Address [address] [place] [address] Care Team Providers Care Hanger Name Role Phone Brandt Wong MD Primary Care Prov ider Encounter Details Date Type Department Care Team (Latest Contact Info) Description 07/18/2024 Travel Social History Tobacco Use Types Packs/Day Years [...] Patient Health Questionnaire-2 Score 0 09/28/2023 Comments No Sex and Gender Information Value Date Recorded Sex Assigned at Female 03/15/2022 10:17 AM EDT Legal Sex Female 10:17 AM EDT Gender Identity Female 03/15/2022 10:17 AM EDT Sexual Orientation Straight 03/15/2022 10 :17 AM EDT documented as of this encounter Plan of Treatment Upcoming Encounters Date Type Department Care Team (Late st Contact Info) Description 10/05/2024 9:30 AM EDT Office Visit [facility] MED & PEDS [address] [place] [address] Brandt Wong MD [address] [place] [address] documented as of this encounter Visit Diagnoses Not on filedocumented in this encounter Additional Health Concerns Assessment Noted Time PHQ-9 Depression Total Score: 0 09/28/19 24 3:36 PM EDT documented as of this encounter Care Teams Hanger Relationship Specialty Start Date End Date Brandt Wong MD [address] [place] [address] PCP - General Internal Medicine 10/14/19 documented as of this encounter
--- OUTSIDE RECORDS SUMMARY | 2024-07-18 14:29 | XMS_ITS | Clinical Summary ---
Author Organization [email or web address] Address [address] [place] [address] Care Team Providers Care Coverer Name Role Phone Brandt Wong MD Primary Care Prov ider Allergies Active Allergy Reactions Criticality Noted Date Comments Shellfish Allergy 04/17/2022 Medications EPINEPHrine (Epipen) 0.3 MG/0.3ML injection syringe Use 1 Pen by Intramuscular route 022 Active Asmanex HFA 100 MCG/ACT aerosol INHALE 1 PUFF BY MOUTH TWICE DAILY RINSE MOUTH AFTER USING. 13 g 1 024 Active dulaglutide (Trulicity) 4.5 MG/0.5ML solution pen-injector Inject 4.5 mg under the skin 1 (one) time per week. 4 each 024 Active atorvastatin (Lipitor) 20 MG tabletIndications :Mixed hyperlipidemia Take 1 tablet (20 mg) by mouth Once per day. 90 tablet 3 024 2024 Active lisinopril 20 MG tablet Take 1 tablet (20 mg) by mouth Once per day. 90 tablet 3 024 2024 Active albuterol (Ventolin HFA) 108 (90 Base) MCG/ACT inhalerIndication s:Mild intermittent asthma without complication Inhale 1 puff every 4 (four) hours if needed for wheezing. 18 g 3 024 Active FeroSul 325 (65 Fe) MG tablet TAKE 1 TABLET BY MOUTH EVERY MORNING WITH BREAKFAST 90 tablet 3 025 Active norethindrone (Micronor) 0.35 MG tablet Take 1 tablet (0.35 mg) by mouth Once per day. 28 tablet 3 025 2025 Active empagliflozin (Jardiance) 25 MG Take 1 tablet (25 mg) by mouth Once per day. 90 tablet 3 024 2024 Discontinued(T herapy completed) drospirenone-ethi nyl estradiol-levomef olate calcium (Bayaz, Stephanie) 3-0.02-0.451 MG Take 1 tablet by mouth Once per day. 28 tablet 11 025 2024 Discontinued Active Problems Problem Noted Date Diagnosed Date Iron deficiency anemia 04/25/2023 Assessment & Plan (03/08/2024 2:14 PM EDT): New labs will be ordered for guidane of therpay Assessment & Plan (04/25/2023 4:16 PM EST): Ordered oral iron replacement, denied rectal bleeding, follow up in 2-3 months Neck muscle spasm 04/25/2023 Assessment & Plan (04/25/2023 4:17 PM EST): Started 3-4 days ago, will order cyclobenzaprine Screening for colon cancer 02/28/2023 Assessment & Plan (03/08/2024 2:14 PM EDT): Will refer to Gi for evaluation Assessment & Plan (02/28/2023 7:03 PM EDT): Will place gastroenterology referral Cervical cancer screening 07/07/2022 Assessment & Plan (07/07/2022 4:32 PM EST): Will refer for screening cervical cancer with Ezequiel Encounter for screening mamm ogram for malignant neoplasm of breast 07/07/2022 Assessment & Plan (02/28/2023 7:03 PM EDT): Will place mammogram order Primary hypertension 07/07/2022 Assessment & Plan (03/08/2024 2:13 PM EDT): Will increase lisinopril to 20mg, continue low sodium diet, keep bp log, follow up in 3 months Assessment & Plan (11/30/2023 4:51 PM EDT): Could not provide me today results, but refers when she checks it usually is below 130/80, told to keep low sodium diet and exercise as tolerated Pending eye exam Assessment & Plan (09/28/2023 10:27 PM EDT): Controlled, conitnue lisinopril target <130/80, continue low sodium diet and exercise as tolerated, follow up in 3-4 months Assessment & Plan (04/25/2023 4:13 PM EST): Controlled, reinforced low sodium diet and exercise as tolerated, follow up in 3 months Assessment & Plan (07/07/2022 4:34 PM EST): Controlled on lisinopril, no changes will be made, reinforced low sodium diet and exercise as tolerated Mild intermittent asthma 02/24/2018 Assessment & Plan (04/25/2023 4:15 PM EST): Not controlled, using albuterol rescue almost daily, on examination was clear to auscultation, will order ICS Morbid obesity 02/24/2018 Nonalcoholic steatohepatitis 02/24/2018 Type 2 diabetes mellitus 02/24/2018 Assessment & Plan (03/08/2024 2:13 PM EDT): Stable, continue trulicity and jardiance, she has lost almost 30lbs, encouraged to keep low carb/no sugar diet, exercise as tolerated Assessment & Plan (11/30/2023 4:42 PM EDT): Will increase trulicity to 4.5mg, as she was before, continue jardiane 25mg, follow up in 3 months with new labs Assessment & Plan (09/28/2023 10:29 PM EDT): Patient off Trulicity for almost 3 weeks, due to stock issues, will add jardiance will contact our pharmacy to check Availability Will refer to [facility] for eye exam Assessment & Plan (04/25/2023 4:15 PM EST): Will increase trulicity to 4.5mg, reinforced importance of lifestyle modifications, follow up in 1 month Assessment & Plan (02/28/2023 7:03 PM EDT): Patient on Trulicity, new labs will be placed for guidance of therapy, told to keep a glucose log for next appointment, encouraged low carb/no sugar diet Assessment & Plan (07/07/2022 4:33 PM EST): On trulicity, will place order for new labs for guidance of therapy Vitamin D deficiency 02/24/2018 Encounters Date Type Department Care Team Description 07/18/2024 11:30 AM EST Office Visit [address] [address] Cony Cloud CNM Abnormal uterine bleeding (Primary Dx); Screening examination for venereal disease; Family planning counseling 07/18/2024 Travel 07/17/[address] [address] Brandt Wong MD Nurse Triage 07/10/2024 3:30 PM EST Telemedicine [facility] [address] [place] [address] Brandt Wong MD 07/10/2024 Travel 07/09/[address] [facility] [address] [place] [address] Brandt Wong MD chart prep 07/04/[address] [address] Brandt Wong MD Appointment Request 07/03/[address] [address] Mariposa Lima [place] Che Recall 06/29/2024 Orders Only [facility] [address] [place] [address] Brandt Wong MD 06/25/2024 Telephone [facility] MEDIC[facility] [address] [place], [place] [phone] Brandt Wong MD Medication Question 05/21/2024 Refill [facility] [address] [place] [address] Brandt Wong MD 05/10/2024 Telephone [facility] [address] [place], [place] [phone] Brandt Wong MD from Last 3 Months Immunizations Name Administration Dates Next Due Hep A, Adult 10/03/2018 Hep B, adult 11/28/2018,10/03/2018 MMR 11/30/2018 Moderna Covid-19 Vaccine 12+ 01/18/2021,11/24/19 21 Pneumococcal Polysaccharide PPSV23 11/23/2018 Tdap 11/23/2018 Varicella 11/30/2018 Family History Medical History Relation Name Comments Breast cancer Mother unilateral, ne gative genetics testing. In remission x 5y as of 08/2023. Relation Name Status Comments Mother Social History Tobacco Use Types Packs/Day Years Used Date Smoking Tobacco: Never Smokeless Tobacco: Never Tobacco Cessation:Counseling Given: Not Answered Alcohol Use Standard Drinks/Week Comments Yes 0 [...] Orientation Straight 03/15/2022 10 :17 AM EDT Last Filed Vital Signs Vital Sign Reading Time Taken Comments Blood Pressure 162/92 07/18/2024 12:09 PM EST Pulse 86 07/18/2024 12:09 PM EST Temperature 36.3 ??C (97.3 ??F) 07/18/2024 12:[address] Respiratory Rate 20 07/18/2024 12:09 PM EST Oxygen Saturation 99% 07/18/2024 12:09 PM EST Inhaled Oxygen Concentration - - Weight 123 kg (270 lb 3.2 oz) 07/18/2024 12:09 P M EST Height 157.5 cm (5' 2 ) 07/18/2024 12:09 PM EST Body Mass Index 49.42 07/18/2024 12:09 PM EST Plan of Treatment Upcoming Encounters Date Type Department Care Team (Late st Contact Info) Description 10/05/2024 9:30 AM EDT Office Visit [facility] [address] [place] [address] Brandt Wong MD [address] [place] [address] Health Maintenance Due Date Last Done Comments CT Colonography 1980 Colonoscopy 1978 Colorectal Cancer Screening 1980 FIT DNA/Cologuard 1980 FIT 1980 FOBT 1980 Sigmoidoscopy 1980 Eye Exam 02/01/1988 Alcohol/Substance Use Screening 1990 Dental Oral Exam 03/14/2019 09/11/2018 Dental Prophylaxis 03/26/2019 09/22/2018, 05/12/2016 Hepatitis A Vaccines (2 of 2 - Risk 2-dose series) 04/05/2019 10/03/2018 Hepatitis B Vaccines (3 of 3 - 19+ 3-dose series) 04/05/2019 11/28/2018, 10/03/2018 Dental X-Ray: Full Mouth 05/13/2019 05/12/2016 Pneumococcal Vaccine: Pediatrics (0 to 5 Years) and At-Risk Patients (6 to 49) Years) (2 of 2 - PCV) 11/24/2019 11/23/2018 COVID-19 Vaccine (3 - 2023- season) 2024 01/18/2021, 11/23/2020 Influenza Vaccine (#1) 2024 Diabetes: Urine Protein Screening 03/25/2024 03/25/2023, 03/02/2023, 07/21/2021 Diabetes: Hemoglobin A1C 06/10/2024 024, 03/02/2023, 07/21/2021, Additional history exists Dental X-Ray: Bitewings 08/23/2024 08/23/19 24, 09/11/2018, 05/12/2016, Additional history exists Depression Screening 09/27/2024 09/28/2023, 09/28/19 SDOH Screening 09/27/2024 09/28/2023 Diabetes: Foot Exam 03/08/2025 03/08/2024, 03/08/2024, 03/08/2024, Additional history exists Tobacco Screening 03/08/2025 03/08/2024 Lipid Panel 03/10/2025 03/10/2024, 02/13, 07/21/2021, Additional history exists Family Planning (PISQ) 07/18/2025 07/18/2024 Mammogram 04/09/2026 04/09/2024, 04/04/2023 Zoster Vaccines (1 of 2) 02/01/2028 Cervical Cancer Screening 09/07/2028 HPV/Cotest 09/07/2028 09/08/2023 Pap Smear 09/07/2028 09/08/2023 DTaP/Tdap/Td Vaccines (2 - Td or Tdap) 11/23/2028 11/23/2018 RSV Patients and Patients Aged 60 years or older (1 - 1-dose 75+ series) 2053 HIV Screening Discontinued 03/08/2024 Hepatitis C Screening Discontinued 03/08/2024 HIB Vaccines Aged Out No longer eligi ble based on patient's age to complete this topic HPV Vaccines Aged Out No longer eligi ble based on patient's age to complete this topic IPV Vaccines Aged Out No longer eligi ble based on patient's age to complete this topic Meningococcal Vaccine Aged Out No jessie mali eligible based on patient's age to complete this topic RSV under 20 months Aged Out No longe r eligible based on patient's age to complete this topic Rotavirus Vaccines Aged Out No longer eligible based on patient's age to complete this topic Procedures Procedure Name Priority Date/Time Associated Diagnosis Comments TSH W/REFLEX TO FT4 Routine 07/18/2024 1 2:06 PM EST Abnormal uterine bleeding POCT HEMOGLOBIN Routine 07/18/2024 11:49 AM EST Abnormal uterine bleeding POCT , URINE Routine 07/18/2024 11:48 AM EST Abnormal uterine bleeding BI MAMMOGRAM SCREENING TOMOSYNTHESIS BILATERAL Routine 04/09/2024 3:00 PM EST HEMOGLOBIN A1C Routine 03/10/2024 10:04 AM EDT Type 2 diabetes mellitus with hyperglycemia, without long-term current use of insulin ([facility]) LIPID PANEL, STANDARD Routine 03/10/2024 10:04 AM EDT Mixed hyperlipidemia HEPATITIS C AB W/REFL TO HCV RNA, QN, PCR Routine 03/08/2024 1:47 PM EDT STD exposure HIV 1/2 ANTIGEN/ANTIBODY, FOURTH GENERATION W/RFL Routine 03/08/2024 1:47 PM EDT STD exposure HPV MRNA E6/E7 REFLEX TO HPV 16, 18/45 Routine 09/08/2023 1:33 PM EDT PAP SMEAR Routine 09/08/2023 1:33 PM EDT Cervical cancer screening BITEWING - SINGLE RADIOGRAPHIC IMAGE Routine 08/23/2023 1:00 PM EDT Dental abscess Periodontal disease ALBUMIN, RANDOM URINE W/CREATININE Routine 03/25/2023 12:47 PM EST PROPHYLAXIS - ADULT Routine 09/22/2018 1 2:00 AM EDT PERIODIC ORAL EVALUATION - ESTABLISHED PATIENT Routine 09/11/2018 12:00 AM EDT INTRAORAL - COMPLETE SERIES OF RADIOGRAPHIC IMAGES Routine 05/12/2016 12:00 AM EST from Last 3 Months or Most Recently Relevant to Health Maintenance Results * TSH W/Reflex to FT4 (07/18/2024 12:06 PM EST) TSH reflex Free T4 0.97 0.32 - 4.0 uIU/mL [facility] Blood Venous blood specimen / Unknown 07/18/2024 12:06 PM EST 07/18/2024 1:14 PM EST Cony MAJANO LAB BLOOD ORDERABLES Karen l Result [facility] [address] [place] [phone] * POCT hemoglobin docked device (07/18/2024 11:49 AM EST) Pathologist [facility] [place] Hemoglobin 14.1 12.0 - 15.0 QC Media Lot # [id number] Lot# Expiration Date [id number] Blood 07/18/2024 11:4 9 AM EST Cony Cloud [facility] POINT OF CARE TEST ENTER/ EDIT ORDERABLES Final Result * POCT , urine manually resulted (07/18/2024 11:48 AM EST) Preg Test, Ur Negative Negative, Indeterminate, None Detected, Invalid, Specimen unsatisfactory for evaluation, Weakly Positive QC Media Lot # [id number] Lot# Expiration Date [id number] Urine 07/18/2024 11:4 8 AM EST Cony Cloud CNM POINT OF CARE TEST ENTER/ EDIT ORDERABLES Final Result * BI Mammogram Screening Tomosynthesis Bilateral (04/09/2024 3:00 PM EST) Anatomical Region Laterality Modality Breast Bilateral Mammography 04/09/2024 3:00 PM EST Narrative 04/19/2024 9:25 AM EST ? [facility] ? [address] ?[place], [place] [address] ? Mammography Report ? Signed ? Patient: Martha Naranjo ?MR#: [id number] ? : 1980 ?Acct:[id number] ? Age/Sex: 44 / F ?ADM Date: 04/09/24 ? Loc: HO.MAMMO ? Attending Dr: Brandt Robertson MD ? Ordering Physician: Brandt Wong MD ?Res ?? ults: 1Negative ? Date of Service: 04/09/24 ?Follow Up: 1 Year From Orig ?? inal Mammogram ? Procedure(s): MM tomosynthesis screening BI ?? Accession Number(s): [id number] ? cc: Brandt Wong MD ? EXAMINATION: ?? MM SCREENING DIGITAL BREAST TOMOSYNTHESIS, BILATERAL ? CLINICAL INFORMATION: ? Screening. Asymptomatic. ? COMPARISON: ?? Mammography: Comparison is made with available priors ? TECHNIQUE: ?? Digital breast mammography with tomosynthesis is performed in both the ?? craniocaudal and mediolateral oblique views along with computer-aided ?? detection (CAD). ? FINDINGS: ?? There are scattered areas of fibroglandular density (ACR BI-RADS breast ?? composition Category b). ? There are no significant masses, abnormal calcifications, or other ?? abnormalities. ? MM/MM tomosynthesis screening BI ?? IMPRESSION: ?? No mammographic evidence of malignancy. ? ASSESSMENT: ? BI-RADS BI-RADS 1 - Negative ? RECOMMENDATION: ?? Routine annual mammography screening. ? 1 year F/U ? This examination should not preclude the clinical evaluation of a ?? suspicious palpable abnormality. ? This patient's information was entered into a reminder system with a ?? target due date for their next mammogram. ? Electronically signed by: ??Jada Cohn DO ??04/19/2024 09:22 AM EST ? Dictated By: ?Jada Cohn DO ? Signed By: ?<Electronically signed by Jada Cohn, DO in OV> ? 04/19/24 0922 ? DD/ 1500 ? TD/TT: 04/09/24 1533 ? Adjuster: ? Procedure Note Kate, Image - 04/19/2024 [facility] [address] [place] [address] Mammography Report Signed Patient: Pippa Naranjo#: [id number] : 1980Acct:[id number] Age/Sex: 44 / FADM Date: 04/09/24 Loc: [facility] Attending Dr: Brandt Robertson MD Ordering Physician: Brandt Wong ults: 1Negative Date of Service: 04/09/24Follow Up: 1 Year From Orig inal Mammogram Procedure(s): MM tomosynthesis screening BI Accession Number(s): [id number] cc: Brandt Wong MD EXAMINATION: MM SCREENING DIGITAL BREAST TOMOSYNTHESIS, BILATERAL CLINICAL INFORMATION: Screening. Asymptomatic. COMPARISON: Mammography: Comparison is made with available priors TECHNIQUE: Digital breast mammography with tomosynthesis is performed in both the craniocaudal and mediolateral oblique views along with computer-aided detection (CAD). FINDINGS: There are scattered areas of fibroglandular density (ACR BI-RADS breast composition Category b). There are no significant masses, abnormal calcifications, or other abnormalities. MM/MM tomosynthesis screening BI IMPRESSION: No mammographic evidence of malignancy. ASSESSMENT: BI-RADS BI-RADS 1 - Negative RECOMMENDATION: Routine annual mammography screening. 1 year F/U This examination should not preclude the clinical evaluation of a suspicious palpable abnormality. This patient's information was entered into a reminder system with a target due date for their next mammogram. Electronically signed by: Jada Cohn DO 04/19/2024 09:22 AM EST Dictated By: Jada Cohn DO Signed By: <Electronically signed by Jada Cohn DO in OV> 04/19/24 0922 DD/ 1500 TD/TT: 04/09/24 1533 Adjuster: Brandt Robertson MD IMG BI PROCEDURES Edited Result - Final * Hemoglobin A1c (03/10/2024 10:04 AM EDT) Hemoglobin A1c 5.9 <6.0 % [facility] Comment:Hemoglobin A1C Refer ence Range Adults: 4.8 - 6.0 % Non diabetic: < 6.0 % Goal: < 7.0 %Additional Action Suggested: > 8.0 %Note: Hemoglobin A1c results are invalid for patients with abnormal amounts of HbF. Blood transfusions may impact the HbA1c concentration in the patient sample. Estimated Average Glucose 123 mg/dL [facility] Comment:eAG = Estimated ave rage glucose which is %A1C expressed asaverage glucose, using the formula of the A0R-BgnpgbfAniskoo Glucose study (ADAG), Diabetes Care, Vol.31,#8,Dec. 2007 Blood Venous blood specimen / Unknown 03/10/2024 10:04 AM EDT 03/10/2024 10:04 AM EDT us Brandt Robertson MD LAB BLOOD ORDERABL ES Final Result Performing Organization Address [facility] Co de Phone Number [facility] [address] [place] [phone] * Lipid Panel, Standard (03/10/2024 10:04 AM EDT) Triglycerides 83 <150 mg/dL [facility] Comment:Desirable Triglyceri de: less than 150 mg/dLBorderline High Triglyceride 150-199 mg/dLHigh Triglyceride: 200-499 mg/dLVery High Triglyceride: greater than or equal to 5OO mg/dL Cholesterol 143 <200 mg/dL [facility] Comment:Desirable Cholestero l: less than 200 mg/dLBorderline High Cholesterol: 200-239 mg/dLHigh Cholesterol: greater than 239 mg/dL LDL Cholesterol Calculated 70 <100 mg/dL [facility] Comment:Desirable LDL: less than 100 mg/dLNear Optimal/Above Optimal LDL: 110- 129 mg/dLBorderline High LDL: 130-159 mg/dLHigh LDL: 160-189 mg/dLVery High LDL: greater than or equal to 190 mg/dL HDL Cholesterol 57 >40 mg/dL [facility] Comment:Desirable HDL: great er than 40 mg/dL Note: This HDL assay may give artificially low results in patients with liver disease. Blood Venous blood specimen / Unknown 03/10/2024 10:04 AM EDT 03/10/2024 10:04 AM EDT us Brandt Robertson MD LAB BLOOD ORDERABL ES Final Result Performing Organization Address [facility] Co de Phone Number [facility] [address] [place] [phone] * Hepatitis C Antibody with Reflex to HCV, RNA, Quantitative, Real-Time PCR (03/08/2024 1:47 PM EDT) Hepatitis C Antibody Nonreactive Nonreactive [facility] Comment:Antibodies to HCV no t detected; does not exclude early acuteHCV infection. Blood Venous blood specimen / Unknown 03/08/2024 1:47 PM EDT 03/08/2024 2:21 PM EDT Brandt Robertson MD LAB BLOOD ORDERABL ES Final Result Performing Organization Address [facility] Co de Phone Number [facility] [address] [place] [phone] * HIV-1/2 Antigen and Antibodies, Fourth Generation, with Reflexes (03/08/2024 1:47 PM EDT) Pathologist [facility] [place] HIV AB/AG Nonreactive Nonreactive [facility] Comment:HIV-1 p24 Ag and/or HIV-1/HIV-2 Ab not detected.A test result that is nonreactive does not exclude thepossibility of exposure to or infection with HIV-1 and/orHIV-2. Nonreactive results in this assay for individualswith prior exposure to HIV-1 and/or HIV-2 may be due toantigen and antibody levels that are below the limit ofdetection of this assay.The [employer] HIV Ag/Ab Combo assay result andsupplemental assay results should be interpreted inconjunction with the patient's clinical presentation,history and other laboratory results. If the results areinconsistent with clinical evidence, additional testing issuggested to confirm the result. Blood Venous blood specimen / Unknown 03/08/2024 1:47 PM EDT 03/08/2024 2:21 PM EDT Bradnt Robertson MD LAB BLOOD ORDERABL ES Final Result Performing Organization Address [facility]/ZIP Co de Phone Number [facility] [address] [place] [phone] * HPV mRNA E6/E7 w/Reflex to HPV Genotypes 16, 18/45 (09/08/2023 1:33 PM EDT) HPV nRNA E6/E7 Not Detected Not Detected [facility] Comment:Methodology: Transcr iption-Mediated AmplificationThis assay detects E6/E7 viral messenger RNA (mRNA) from 14high-risk HPV types (16,18,31,33,35,39,45,51,52,56,58,59,66,68).Cervical sources are required for HPV testing.If a vaginal source from a patient who has had atotal hysterectomy with removal of cervix wassubmitted, please contact the testing laboratoryfor alternative testing options.For additional information, please refer [email or web address]/[email or web address](This link if provided for information/educational purposes only.)THIS TEST WAS PERFORMED AT:[facility] [place] [phone] HENDERSON MD HPV mRNA E6/E7 [facility] HPV 16 RNA [facility] HPV 18/45 RNA [facility] 09/08/2023 1:33 PM EDT 09/09/2023 7:30 AM EDT Cony Cloud [facility] CYTOLOGY ORDERABLES F inal Result [facility] [address] [place] [phone] * Pap Smear (09/08/2023 1:33 PM EDT) Swab Cervix uteri structure / Unknown 09/08/2023 1:33 PM EDT 09/09/2023 7:30 AM EDT Narrative [facility] - 09/26/2023 11:58 AM EDT ----- ------- Name: Martha Naranjo ?Age/Sex: 43/F ? : 1980 Unit#: [id number] ?? Attend Dr: CONY CLOUD CNM ?Re09/08/23 ?Status: DEP REF ? Location: HO.HHCLNP ? Disch: ? ----- ------- SPEC : [id number] ? RECD: 09/09/23 ? STATUS: ??SOUT ? REQ NUM: [id number] ? DIPIKA: 09/08/23-1332 ? SUBM DR: CONY CLOUD CNM ? ENTERED: ??09/09/23 ?SP TYPE: Pap Smr ?OTHR : ? ORDERED: ??Pap Smear ? Interpretation ?? Satisfactory for evaluation. ?? No endocervical cells seen. ?? Negative for intraepithelial lesion or malignancy. ?HPV mRNA E6/E7: ?NOT DETECTED ? This assay detects E6/E7 viral messenger RNA (mRNA) from 14 high-risk HPV types (16, 18, ?? 31, 33, 35, 39, 45, 51, 52, 56, 58, 59, 66, 68) ?? HPV testing performed by [employer], [place], [place]. ??See reference laboratory ?? portion of the EMR for entire report. ?Clinical Information LMP: Unknown date Previous PAP test: Unknown date/findings ? Material Received ?? ThinPrep-Vaginal/Cervical ----- ------- Signed (signature on file) ELENITA Vega (ASCP) 09/26/23 1158 ? ----- ------- ? END OF REPORT ? us Cony Cloud [facility] CYTOLOGY ORDERABLES F inal Result Performing Organization Address [facility] Co de Phone Number [facility] [address] [place] [phone] * Albumin, Random Urine W/Creatinine (03/25/2023 12:47 PM EST) Creatinine, Urine 71.41 mg/dL [facility] Microalbumin Urine 11.0 mg/L [facility] Microalbum Creatinine Ratio Ur 15.4 <30 ug/mg cr [facility] Comment:Albumin/Creatinine R atio Reference Ranges: Normal: < 30 ug/mg creatinine Microalbuminuria: 30 - 300 ug/mg creatinineClinical Albuminuria: > 300 ug/mg creatinine 03/25/2023 12:4 7 PM EST 03/25/2023 2:21 PM EST Brandt Robertson MD LAB URINE ORDERABL ES Final Result Performing Organization Address [facility] Co de Phone Number [facility] [address] [place] [phone] from Last 3 Months or Most Recently Relevant to Health Maintenance Insurance [facility] [address] [facility] STAND ADULT Care Teams Coverer Relationship Specialty Start Date End Date Brandt Wong MD [address] [place] [phone] PCP - General Internal Medicine 10/14/19
--- OUTSIDE RECORDS SUMMARY | 2024-07-18 14:29 | XMS_ITS | Encounter Summary ---
Author Organization [employer] Address [address] 7t [place] [address] Care Team Providers Care Hospital Food Service Worker Name Role Phone Brandt Wong MD Primary Care Prov ider Reason for Visit * Reason Onset Date Comments Medication Question 06/25/2024 Encounter Details Date Type Department Care Team ([facility] st Contact Info) Description 06/25/2024 Telephone [facility] MED[facility]INE [address] [place] [address] Brandt Wong MD [address] [place] [address] Medication Question Social History Tobacco Use Types Packs/Day Years [...] encounter Miscellaneous Notes * Telephone Encounter - Hazel Newman RN - 06/29/2024 4:08 PM EST TC placed to pt to inform PCP sent prescription for control pills to pharmacy. Pt verbalized understanding and denies questions or concerns at this time. * Telephone Encounter - Hazel Newman RN - 06/26/2024 3:52 PM EST Incoming TC from pt regarding control. Pt looking to begin control pills. Message sent to provider to review and advise. * Telephone Encounter - Hazel Newman RN - 06/26/2024 8:57 AM EST TC placed to pt regarding request for control. No answer, LVM to call office back. * Telephone Encounter - Eden Mazariegos - 06/25/2024 1:42 PM EST Tc from pt stating spoke with pcp in the last office visit regarding control and are requesting a prescript. Any questions contact. [phone] documented in this encounter Plan of Treatment Upcoming Encounters Date Type Department Care Team (Late st Contact Info) Description 10/05/2024 9:30 AM EDT Office Visit [facility] MED & PEDS [address] [place] [address] Brandt Wong MD [address] [place] [address] documented as of this encounter Visit Diagnoses Not on filedocumented in this encounter Additional Health Concerns Assessment Noted Time PHQ-9 Depression Total Score: 0 09/28/19 24 3:36 PM EDT documented as of this encounter Care Teams Hospital Food Service Worker Relationship Specialty Start Date End Date Brandt Wong MD [address] [place] [address] PCP - General Internal Medicine 10/14/19 documented as of this encounter
--- OUTSIDE RECORDS SUMMARY | 2024-07-18 14:29 | XMS_ITS | Encounter Summary ---
Author Organization [employer] Address [address] [facility] 7t [place] [address] Care Team Providers Care 6Th Grade Teacher Name Role Phone Brandt Wong MD Primary Care Prov ider Reason for Visit * Reason Onset Date Comments new script 11/04/2023 Encounter Details Date Type Department Care Team ([facility] st Contact Info) Description 11/04/2023 Telephone [facility] MEDICINE [address] [place] [address] Brandt Wong MD [address] [place] [address] new script Social History Tobacco Use Types Packs/Day Years [...] encounter Miscellaneous Notes * Telephone Encounter - Rocio Mercado - 11/04/2023 10:29 AM EDT Tc from pt stated that [facility] pharmacy has Trulicity 1.5mg and Trulicity 4.5mg. to see if we can send a script until PA for Ozempic is done. PCP DR. Alfonso documented in this encounter Plan of Treatment Upcoming Encounters Date Type Department Care Team (Late st Contact Info) Description 10/05/2024 9:30 AM EDT Office Visit [facility] MED & PEDS [address] [place] [address] Brandt Wong MD [address] [place] [address] documented as of this encounter Visit Diagnoses Not on filedocumented in this encounter Additional Health Concerns Assessment Noted Time PHQ-9 Depression Total Score: 0 09/28/19 24 3:36 PM EDT documented as of this encounter Care Teams 6Th Grade Teacher Relationship Specialty Start Date End Date Brandt Wong MD [address] [place] [address] PCP - General Internal Medicine 10/14/19 documented as of this encounter
--- OUTSIDE RECORDS SUMMARY | 2024-07-18 14:29 | XMS_ITS | Encounter Summary ---
Author Organization [employer] Address [address] [facility] 7t [place] [address] Care Team Providers Care Stone And Plate Preparer Apprentice Name Role Phone Brandt Wong MD Primary Care Prov ider Reason for Visit * Reason Comments Med Refill Encounter Details Date Type Department Care Team ([facility] st Contact Info) Description 03/07/2023 Refill [facility] CH[facility] MED & PEDS [address] [place], [place] [phone] Brandt Wong MD [address] [place] [address] Social History Tobacco Use Types Packs/Day Years [...] Description 10/05/2024 9:30 AM EDT Office Visit [facility] MED & PEDS [address] [place] [address] Brandt Wong MD [address] [place] [address] documented as of this encounter Visit Diagnoses Not on filedocumented in this encounter Additional Health Concerns Assessment Noted Time PHQ-9 Depression Total Score: 0 07/07/19 23 3:30 PM EST documented as of this encounter Care Teams Stone And Plate Preparer Apprentice Relationship Specialty Start Date End Date Brandt Wong MD [address] [place] [address] PCP - General Internal Medicine 10/14/19 documented as of this encounter
--- OUTSIDE RECORDS SUMMARY | 2024-07-18 14:29 | XMS_ITS | Encounter Summary ---
Author Organization [employer] Address [address] [facility] 7t [place] [address] Care Team Providers Care Automobile Tire Builder Name Role Phone Brandt Wong MD Primary Care Prov ider Reason for Visit * Reason Onset Date Comments Results 03/15/2024 Encounter Details Date Type Department Care Team ([facility] Contact Info) Description 03/15/2024 Telephone [facility] MED & PEDS [address] [place], [place] [phone] Brandt Wong MD [address] [place] [address] Results Social History Tobacco Use Types Packs/Day [...] encounter Miscellaneous Notes * Telephone Encounter - Toya Rosa - 03/15/2024 12:35 PM EDT TC from pt requesting call back regarding Results. Type of results: Lab work Date when done: 03/08/24 Facility: [facility] Type of results: Lab work Date when done: 03/10/24 Facility: [facility] documented in this encounter Plan of Treatment Upcoming Encounters Date Type Department Care Team (Late st Contact Info) Description 10/05/2024 9:30 AM EDT Office Visit [facility] MED & PEDS [address] [place] [address] Brandt Wong MD [address] [place] [address] documented as of this encounter Visit Diagnoses Not on filedocumented in this encounter Additional Health Concerns Assessment Noted Time PHQ-9 Depression Total Score: 0 09/28/19 24 3:36 PM EDT documented as of this encounter Care Teams Automobile Tire Builder Relationship Specialty Start Date End Date Brandt Wong MD [address] [place] [address] PCP - General Internal Medicine 10/14/19 documented as of this encounter
--- OUTSIDE RECORDS SUMMARY | 2024-07-18 14:29 | XMS_ITS | Encounter Summary ---
Author Organization [employer] Address [address] [facility] 7t [place] [address] Care Team Providers Care Golf Teacher Name Role Phone Brandt Wong MD Primary Care Prov ider Encounter Details Date Type Department Care Team ([facility] Contact Info) Description 06/10/2022 Orders Only [facility] MEDICINE [address] [place] [address] Brandt Wong MD [address] [place], [place] [phone] Irritable bowel syndrome with both constipation and diarrhea (Primary Dx) Social History Tobacco Use Types Packs/Day Years [...] Description 10/05/2024 9:30 AM EDT Office Visit [facility] CH[facility] MED & PEDS [address] [place], [place] [phone] Brandt Wong MD [address] [place] [address] documented as of this encounter Visit Diagnoses Diagnosis Irritable bowel syndrome with both constipation and diarrhea- Primary documented in this encounter Care Teams Golf Teacher Relationship Specialty Start Date End Date Brandt Wong MD [address] [place] [address] PCP - General Internal Medicine 10/14/19 documented as of this encounter
--- OUTSIDE RECORDS SUMMARY | 2024-07-18 14:29 | XMS_ITS | Encounter Summary ---
Author Organization [employer] Address [address] [facility] 7t [place] [address] Care Team Providers Care Winderman Name Role Phone Brandt Wong MD Primary Care Prov ider Reason for Visit * Reason Onset Date Comments chart prep 07/09/2024 Encounter Details Date Type Department Care Team ([facility] st Contact Info) Description 07/09/2024 Telephone [facility] CH[facility] MED & PEDS [address] [place], [place] [phone] Brandt Wong MD [address] [place] [address] chart prep Social History Tobacco Use Types Packs/Day Years [...] encounter Miscellaneous Notes * Telephone Encounter - Karina Vogel MA - 07/09/2024 4:30 PM EST Chart Prep Labs: done Images: done Vaccines due: yes Referrals: pending appt Screenings: colonoscopy Overdue care gaps: none documented in this encounter Plan of Treatment Upcoming Encounters Date Type Department Care Team (Late st Contact Info) Description 10/05/2024 9:30 AM EDT Office Visit [facility] MED & PEDS [address] [place] [address] Brandt Wong MD [address] [place] [address] documented as of this encounter Visit Diagnoses Not on filedocumented in this encounter Additional Health Concerns Assessment Noted Time PHQ-9 Depression Total Score: 0 09/28/19 24 3:36 PM EDT documented as of this encounter Care Teams Winderman Relationship Specialty Start Date End Date Brandt Wong MD [address] [place] [address] PCP - General Internal Medicine 10/14/19 documented as of this encounter
--- OUTSIDE RECORDS SUMMARY | 2024-07-18 14:29 | XMS_ITS | Encounter Summary ---
Author Organization [employer] Address [address] 7[address] [place] [address] Care Team Providers Care Director Of Neurology Name Role Phone Brandt Wong MD Primary Care Prov ider Encounter Details Date Type Department Care Team ([facility] st Contact Info) Description 06/09/2023 Orders Only [facility] CHC MED & PEDS [address] [place], [place] [phone] Brandt Wong MD [address] [place], [place] [phone] Social History Tobacco Use Types Packs/Day Years [...] Description 10/05/2024 9:30 AM EDT Office Visit [facility] MED & PEDS [address] [place] [address] Brandt Wong MD [address] [place] [address] documented as of this encounter Visit Diagnoses Not on filedocumented in this encounter Additional Health Concerns Assessment Noted Time PHQ-9 Depression Total Score: 0 07/07/19 23 3:30 PM EST documented as of this encounter Care Teams Director Of Neurology Relationship Specialty Start Date End Date Brandt Wong MD [address] [place] [address] PCP - General Internal Medicine 10/14/19 documented as of this encounter
--- OUTSIDE RECORDS SUMMARY | 2024-07-18 14:29 | XMS_ITS | Encounter Summary ---
Author Organization [employer] Address [address] [facility] 7t [place] [address] Care Team Providers Care Cabinet Professional Name Role Phone Brandt Wong MD Primary Care Prov ider Reason for Referral * Imaging (Urgent) - Authorized Specialty Diagnoses / Procedures Referred By Contac t Referred To Contact Radiology Diagnoses Abnormal uterine bleeding Procedures Us Pelvis complete Graciela Meneses CNM [address] [place] [address] Phone: tel: fax: [address] Phone: tel: fax: Referral ID Status Reason Start Date Expiration Date V isits Requested Visits Authorized [id number] Authorized 07/18/2024 07/18/2025 1 1 * Imaging (Urgent) - Authorized Specialty Diagnoses / Procedures Referred By Contac t Referred To Contact Radiology Diagnoses Abnormal uterine bleeding Procedures US Pelvis Transvaginal Graciela Meneses CNM [address] [place] [address] Phone: tel: fax: [address] Phone: tel: fax: Referral ID Status Reason Start Date Expiration Date V isits Requested Visits Authorized [id number] Authorized 07/18/2024 07/18/2025 1 1 Reason for Visit * Reason Comments Gynecologic Exam Encounter Details Date Type Department Care Team ([facility] st Contact Info) Description 07/18/2024 11:30 AM EST Office Visit [facility] [address] [place] [address] Graciela Meneses CNM [address] [place] [address] Abnormal uterine bleeding (Primary Dx); Screening examination for venereal disease; Family planning counseling Social History Tobacco Use Types Packs/Day Years [...] is your housing situation today? I have roselineleon jennings 09/28/[address] you [...] AM EDT documented as of this encounter Last Filed Vital Signs Vital Sign Reading [...] Mass Index 49.42 07/18/2024 12:09 PM EST documented in this encounter Progress Notes * Graciela Meneses, SOCORRO - 07/18/2024 11:30 AM EST Subjective Patient ID: Martha Naranjo is a 44 y.o. female who presents for AUB Per triage, late menses x 3 wks and having prolonged bleeding. LMP 07/07, still bleeding today. 5-6 pads/day. Usually monthly menses x 3-5 days. Normal CBC 02/2024. Prescribed combination oral contraceptive pill 06/2024, but not taking. 1 AMAB partner x 5 months, no safety concerns. Last sexually active without a condom 07/06/2024. Not planning in the next year. No vasomotor symptoms. HIV,syphilis, Hep C neg 02/2024. Gonorrhea/Chlamydia ordered, not run. Last visit with ca 08/2023, pap NIL/HPV neg. Review of Systems Genitourinary: Positive for menstrual problem and vaginal bleeding. Negative for dyspareunia, vaginal discharge and vaginal pain. Objective BP (!) 162/92 (BP Location: Left arm, Patient Position: Sitting, BP Cuff Size: Large adult long) Pulse 86 Temp 97.3 ??F (36.3 ??C) (Temporal) Resp 20 Ht 5' 2 (1.575 m) Wt 270 lb 3.2 oz (123 kg) LMP 07/07/2024 (Exact Date) SpO2 99% BMI 49.42 kg/m?? Physical Exam Constitutional: Appearance: Normal appearance. Genitourinary: General: Normal vulva. Labia: Right: No rash, tenderness, lesion or injury. Left: No rash, tenderness, lesion or injury. Comments: Blood in vagina, limited view of cervix. Bimanual deferred Neurological: Mental Status: She is alert. Psychiatric: Mood and Affect: Mood normal. Behavior: Behavior normal. Assessment/Plan Diagnoses and all orders for this visit: Abnormal uterine bleeding - POCT , urine manually resulted - POCT hemoglobin docked device - TSH W/Reflex to FT4; Future - US Pelvis Transvaginal; Future - Us Pelvis complete; Future test negative today, normal hemoglobin. Will check TSH and pelvic ultrasound, r/o STI. Start progestin only pill today for control and hopefully management of bleeding. Advised notto take previously rx'd combined oral contraceptive pill as progestin only pill is a safer option. May need referral to [facility] depending on ultrasound findings. Screening examination for venereal disease - Chlamydia/N. Gonorrhoeae RNA, TMA, Vagina - Trichomonas RNA (Urine/Vaginal) Vaginal Gonorrhea/Chlamydia/trichomonas sent. Will contact with results. Family planning counseling test negative today. Best to avoid estrogen due C/V risk. Progestin only pill rx'd. Reviewed normal side effects and danger signs. Take at same time daily. Expect some irregular bleeding, absent periods also normal. Other orders - norethindrone (Micronor) 0.35 MG tablet; Take 1 tablet (0.35 mg) by mouth Once per day. documented in this encounter Plan of Treatment Upcoming Encounters Date Type Department Care Team (Late st Contact Info) Description 10/05/2024 9:30 AM EDT Office Visit [facility] MED & PEDS [address] [place] [address] Brandt Wong MD [address] [place], [place] [phone] Scheduled Orders Name Type Priority Associated Diagnoses Orde r Schedule Chlamydia/N. Gonorrhoeae RNA, TMA, Vagina Microbiology Routine Screening examination for venereal disease Ordered: 07/18/2024 Trichomonas RNA (Urine/Vaginal) Lab Routine Screening examination for venereal disease Ordered: 07/18/2024 US Pelvis Transvaginal Imaging Urgent Abnormal uterine bleeding Expected: 07/18/2024, Expires: 07/18/2025 Us Pelvis complete Imaging Urgent Abnormal uterine bleeding Expected: 07/18/2024, Expires: 07/18/2025 documented as of this encounter Procedures Procedure Name Priority Date/Time Associated Diagnosis Comments TSH W/REFLEX TO FT4 Routine 07/18/2024 1 2:06 PM EST Abnormal uterine bleeding POCT HEMOGLOBIN Routine 07/18/2024 11:49 AM EST Abnormal uterine bleeding POCT , URINE Routine 07/18/2024 11:48 AM EST Abnormal uterine bleeding documented in this encounter Results * TSH W/Reflex to FT4 (07/18/2024 12:06 PM EST) TSH reflex Free T4 0.97 0.32 - 4.0 uIU/mL [facility] Blood Venous blood specimen / Unknown 07/18/2024 12:06 PM EST 07/18/2024 1:14 PM EST Graciela Meneses CNM LAB BLOOD ORDERABLES Karen l Result [facility] [address] [place] [phone] * POCT hemoglobin docked device (07/18/2024 11:49 AM EST) Hemoglobin 14.1 12.0 - 15.0 QC Media Lot # [id number] Lot# Expiration Date [id number] Blood 07/18/2024 11:4 9 AM EST Graciela MAJANO POINT OF CARE TEST ENTER/ EDIT ORDERABLES Final Result * POCT , urine manually resulted (07/18/2024 11:48 AM EST) Preg Test, Ur Negative Negative, Indeterminate, None Detected, Invalid, Specimen unsatisfactory for evaluation, Weakly Positive QC Media Lot # [id number] Lot# Expiration Date [id number] Urine 07/18/2024 11:4 8 AM EST Graciela Meneses CNM POINT OF CARE TEST ENTER/ EDIT ORDERABLES Final Result documented in this encounter Visit Diagnoses Diagnosis Abnormal uterine bleeding- Primary Unspecified disorder of menstruation and other abnormal bleeding from female genital tract Screening examination for venereal disease Family planning counseling Other general counseling and advice for contraceptive management documented in this encounter Additional Health Concerns Assessment Noted Time PHQ-9 Depression Total Score: 0 09/28/19 24 3:36 PM EDT documented as of this encounter Care Teams Cabinet Professional Relationship Specialty Start Date End Date Brandt Wong MD [address] [place] [phone] PCP - General Internal Medicine 10/14/19 documented as of this encounter
--- OUTSIDE RECORDS SUMMARY | 2024-07-18 14:29 | XMS_ITS | Encounter Summary ---
Author Organization [employer] Address [address] 7t [place] [address] Care Team Providers Care Wafer Batter Mixer Name Role Phone Brandt Wong MD Primary Care Prov ider Encounter Details Date Type Department Care Team (Latest Contact Info) Description 07/10/2024 Travel Social History Tobacco Use Types Packs/Day [...] 9:30 AM EDT Office Visit [facility] MED & PEDS [address] [place] [address] Brandt Wong MD [address] [place] [address] documented as of this encounter Visit Diagnoses Not on filedocumented in this encounter Additional Health Concerns Assessment Noted Time PHQ-9 Depression Total Score: 0 09/28/19 24 3:36 PM EDT documented as of this encounter Care Teams Wafer Batter Mixer Relationship Specialty Start Date End Date Brandt Wong MD [address] [place] [address] PCP - General Internal Medicine 10/14/19 documented as of this encounter
--- OUTSIDE RECORDS SUMMARY | 2024-07-18 14:29 | XMS_ITS | Encounter Summary ---
Author Organization [employer] Address [address] [facility] [address] [place] [address] Care Team Providers Care Professor Of Sport Management Name Role Phone Brandt Wong MD Primary Care Prov ider Encounter Details Date Type Department Care Team ([facility] st Contact Info) Description 06/29/2024 Orders Only [facility] CHC MED & PEDS [address] [place], [place] [phone] Brandt Wong MD [address] [place], [place] [phone] Social History Tobacco Use Types Packs/Day Years [...] Upcoming Encounters Date Type Department Care Team ([facility] st Contact Info) Description 10/05/2024 9:30 AM EDT Office Visit [facility] MED & PEDS [address] [place] [address] Brandt Wong MD [address] [place] [address] documented as of this encounter Visit Diagnoses Not on filedocumented in this encounter Additional Health Concerns Assessment Noted Time PHQ-9 Depression Total Score: 0 09/28/19 24 3:36 PM EDT documented as of this encounter Care Teams Professor Of Sport Management Relationship Specialty Start Date End Date Brandt Wong MD [address] [place] [address] PCP - General Internal Medicine 10/14/19 documented as of this encounter
--- OUTSIDE RECORDS SUMMARY | 2024-07-18 14:29 | XMS_ITS | Encounter Summary ---
Author Organization [employer] Address [address] [facility]t [place] [address] Care Team Providers Care Digital Account Supervisor Name Role Phone Brandt Wong MD Primary Care Prov ider Encounter Details Date Type Department Care Team ([facility] st Contact Info) Description 07/10/2024 3:30 PM EST Telemedicine [facility] CHC MED & PEDS [address] [place], [place] [phone] Brandt Wong MD [address] [place] [address] Social History Tobacco Use Types Packs/Day Years [...] Sign Reading Time Taken Comments Blood Pressure 130/78 07/10/2024 3:18 PM EST Pulse - - Temperature - - Respiratory Rate - - Oxygen Saturation - - Inhaled Oxygen Concentration - - Weight - - Height - - Body Mass Index - - documented in this encounter Plan of Treatment Upcoming Encounters Date Type Department Care Team (Late st Contact Info) Description 10/05/2024 9:30 AM EDT Office Visit [facility] MED & PEDS [address] [place] [address] Brandt Wong MD [address] [place] [address] documented as of this encounter Visit Diagnoses Not on filedocumented in this encounter Additional Health Concerns Assessment Noted Time PHQ-9 Depression Total Score: 0 09/28/19 24 3:36 PM EDT documented as of this encounter Care Teams Digital Account Supervisor Relationship Specialty Start Date End Date Brandt Wong MD [address] [place] [address] PCP - General Internal Medicine 10/14/19 documented as of this encounter
[2024-07-19 13:44] LABS: CT PCR NOT DETECTED (Not Detect.); NG PCR NOT DETECTED (Not Detect.)
[2024-07-19 22:39] LABS: Trichomonas vaginalis RNA NOT DETECTED (NOT DETECTED)
== END 2024-07-18 12:04 | disposition home or self-care (01) ==
LOC: HO.HHCL 12:03
PROVIDERS: Visit Provider Advanced Practice Midwife
DX: N93.9 Abnormal uterine and vaginal bleeding, unspecified (principal)
CPT/HCPCS: 36415; 84443; 87491; 87591; 87661

== ENCOUNTER 2024-08-08 15:38 | Outpatient (AMB) | payer OTHER, SELFPAY ==
--- NOTE | 2024-08-08 15:39 | MHC.OFFVIS ---
Vital Signs 08/08/24 15:40 Height 5 ft 2 in Weight 274 lb 4.081 oz BMI 50.2 BP 126/60 Blood Pressure Location Rt brachial Position Sitting Pulse 78 Pulse Source Pulse Oximeter Pulse Oximetry (%) 98 Oxygen Delivery Method Room Air Intake Visit Reasons: [place] screening, r/s x1 Intake Note: NEW PATIENT for initial colo screening. Chief Complaint; Pt denies any GI sx or concerns at this time. Pt is being screened per above average BMI. Customer Retention Specialist Required: No Accompanied by: Self / Same As Patient Allergies seafood Allergy (Severe, Verified 08/08/24 15:39) Anaphylaxis HPI HPI [place] screening, r/s x1: Details: 44 year old? female with past medical history of diabetes, morbid obesity, anal fissure is here today for pre colonoscopy screening.? Patient was sent to us by her PCP.? This is her first colonoscopy screening.? Patient denies any gastrointestinal symptoms in the past or at present.? Occasional acid reflux depending on what she eats. Denies any personal or family history of gastrointestinal disease, colon polyps, or CRC.? Denies history of difficulty with sedation or anesthesia in the past.? Negative for history of sleep apnea.? Denies any history of cardiac, renal, pulmonary, or hepatic disease.?? No history of infectious? diseases like hepatitis A, B, C, HIV or tuberculosis.? Patient is not on any anticoagulation [facility] Medical History Anal fissure Diabetes mellitus Morbid obesity section wound complication Retained gallstones following laparoscopic cholecystectomy Surgical History delivery delivered Hx of cholecystectomy Family History Mother Hypertension Breast CA Alzheimer disease Father Chronic obstructive pulmonary disease (COPD) Review of Systems Const Denies weight gain and Denies weight loss ENT Reports no additional complaints, Denies dysphagia and Denies odynophagia Card Reports no additional complaints Resp Reports no additional complaints GI Denies abdominal pain, Denies belching, Denies melena, Denies bloating, Denies change in bowel habits, Denies dysphagia, Denies excessive flatus, Denies dyspepsia, Denies heartburn, Denies diarrhea, Denies loose stools, Denies nausea, Denies odynophagia and Denies vomiting Musc Reports no additional complaints Neuro Reports no additional complaints Psych Reports no additional complaints Endo Reports no additional complaints Physical Exam Vital Signs: Last Vital Signs Pulse 78 08/08/24 15:40 BP 126/60 08/08/24 15:40 Pulse Ox 98 08/08/24 15:40 Oxygen Delivery Method Room Air 08/08/24 15:40 BMI result Body Mass Index 50.2 Const General: healthy appearing and no acute distress Nutritional Appearance: well nourished and obese Orientation/consciousness: patient oriented x3 Resp Effort & Inspection: normal respiratory effort, able to speak in complete sentences, no tracheal deviation and symmetric chest movement Auscultation: clear to auscultation bilaterally Cardio Rate: regular rate GI Inspection: Yes normal to inspection, No distended and Yes obesity Palpation (GI): Soft to palpation, not firm, nontender and No hepatosplenomegaly present Auscultation: normal bowel sounds General: Yes no CVA tenderness Back/Spine/Pelvis Back: no CVA tenderness Skin General skin exam: elasticity normal, turgor normal and dry skin Neuro General: patient oriented x3 Psych Appearance: grossly normal Mental Status: mental status grossly normal Assessment & Plan Assessment & Plan (1) Morbid obesity: Code(s): E66.01 - Morbid (severe) obesity due to excess calories Category: Medical Plan Patient denies any GI, cardiac or respiratory symptoms.? Denies any issues with anesthesia in the past.? Denies any history of sleep apnea.? No history infectious diseases in the past or present.? Patient is on Trulicity. Not on any anticoagulation therapy.? No family or personal history of colon cancer or polyps.? Patient denies melena, hematochezia, unintentional weight loss or ribbon like stools.? Discussed at length the pre-procedure,? prep, diet & medications as well as what to expect prior, during and after the procedure.?? Stressed the importance of good bowel prep.? Recommended the use of Vaseline or Calmoseptine OTC & baby wipes with bowel movements to promote comfort.? Message sent to Surgical scheduled to book procedure for patient. ?Patient verbalizes understanding and agrees to plan of care.? She was given the opportunity to ask questions and all questions answered.? We will see her after the procedure.? Medications: New bisacodyl (Dulcolax (bisacodyl)) take 4 tabs at noon the day before your colonoscopy 20 mg (4 x 5 mg) PO ONCE 4 tabs 0RF 1 day Z12.11 - Encounter for screening for malignant neoplasm of colon polyethylene glycol 3350 (Miralax) As directed by gastroenterology department at [facility] 238 grams PO ONCE 238 grams 0RF Z12.11 - Encounter for screening for malignant neoplasm of colon Coding Level of Care Code New Pt Level 3 (40037) Diagnoses Morbid obesity E66.01 Time Spent (min) 40 Comment 30 minutes spent with patient and additional 10 minutes spent reviewing her records
[2024-08-08 15:40] VITALS: BP 126/60; PULSE 78; O2SAT 98; BMI 50.2
== END 2024-08-08 17:00 | disposition home or self-care (01) ==
LOC: HO.HGI 15:38
PROVIDERS: PCP Internal Medicine; Visit Provider Nurse Practitioner Family
DX: E66.01 Morbid (severe) obesity due to excess calories (principal)
CPT/HCPCS: 99203

== ENCOUNTER → 2024-08-08 15:38 | Outpatient (BNVA) | payer OTHER, SELFPAY | PROVIDERS: PCP Internal Medicine; Visit Provider Nurse Practitioner Family | DX: E66.01 Morbid (severe) obesity due to excess calories (principal); Z68.43 Body mass index [BMI] 50.0-59.9, adult | CPT/HCPCS: 99202 ==

== ENCOUNTER 2024-08-15 15:47 | Outpatient (REF) | payer OTHER, SELFPAY ==
--- NOTE | ~2024-08-15 | US_ITS ---
EXAMINATION: US PELVIS CLINICAL INFORMATION: Abnormal uterine bleeding. COMPARISON: None available. TECHNIQUE: Ultrasound of the pelvis is performed using both transabdominal and transvaginal transducers along with Doppler. Transvaginal imaging is performed due to inadequate visualization transabdominally. FINDINGS: As per technologist note, very limited exam with limited views due to patient body habitus, and bowel gas. Uterus: The uterus is anteverted and measures 13.5 x 5.6 x 6.9 cm. Normal-appearing cervix. Small to both and cyst. The double wall endometrial thickness could not be measured or well visualized due to study limitations. There is very limited visualization of the uterus. Adnexa: There is no pelvic ascites or fluid collection. Right ovary could not be definitively identified. Left ovary could not be definitively identified. US/US pelvic and transvaginal IMPRESSION: Extremely limited exam as detailed, per technologist note. Nonvisualization of the endometrial canal, majority of the uterus, and both ovaries. No free fluid identified. Electronically signed by: Sanjay Velasco MD 08/15/2024 04:42 PM EDT
--- OUTSIDE RECORDS SUMMARY | 2024-08-15 17:51 | XMS_ITS | Encounter Summary ---
Author Organization [employer] Address [address] [facility] [address]t [place] [address] Care Team Providers Care Chili Maker Name Role Phone Brandt Wong MD Primary Care Prov ider Reason for Visit * Reason Comments Med Refill Encounter Details Date Type Department Care Team ([facility] st Contact Info) Description 03/07/2023 Refill [facility] MED & PEDS [address] [place], [place] [phone] Brandt Wong MD [address] [place] [address] Social History Tobacco Use Types Packs/Day Years [...] Description 10/05/2024 9:30 AM EDT Office Visit [facility] MED & PEDS [address] [place] [address] Brandt Wong MD [address] [place] [address] documented as of this encounter Visit Diagnoses Not on filedocumented in this encounter Additional Health Concerns Assessment Noted Time PHQ-9 Depression Total Score: 0 07/07/19 23 3:30 PM EST documented as of this encounter Care Teams Chili Maker Relationship Specialty Start Date End Date Brandt Wong MD [address] [place] [address] PCP - General Internal Medicine 10/14/19 documented as of this encounter
--- OUTSIDE RECORDS SUMMARY | 2024-08-15 17:51 | XMS_ITS | Encounter Summary ---
Author Organization [employer] Address [address] [facility] 7[address] [place] [address] Care Team Providers Care Final Inspector Motorcyles Name Role Phone Brandt Wong MD Primary Care Prov ider Reason for Visit * Reason Onset Date Comments Results 03/15/2024 Encounter Details Date Type Department Care Team ([facility] Contact Info) Description 03/15/2024 Telephone [facility] CHC MED & PEDS [address] [place], [place] [phone] Brandt Wong MD [address] [place] [address] Results Social History Tobacco Use Types Packs/Day [...] Lab work Date when done: 03/08/24 Facility: [facility] Type of results: Lab work Date when done: 03/10/24 Facility: [facility] documented in this encounter Plan of Treatment Upcoming Encounters Date Type Department Care Team (Late st Contact Info) Description 10/05/2024 9:30 AM EDT Office Visit [facility] CHC MED & PEDS [address] [place] [address] Brandt Wong MD [address] [place] [address] documented as of this encounter Visit Diagnoses Not on filedocumented in this encounter Additional Health Concerns Assessment Noted Time PHQ-9 Depression Total Score: 0 09/28/19 24 3:36 PM EDT documented as of this encounter Care Teams Final Inspector Motorcyles Relationship Specialty Start Date End Date Brandt Wong MD [address] [place] [address] PCP - General Internal Medicine 10/14/19 documented as of this encounter
--- OUTSIDE RECORDS SUMMARY | 2024-08-15 17:51 | XMS_ITS | Encounter Summary ---
Author Organization [employer] Address [address] [place] [address] [address] [place] [address] Care Team Providers Care Research Project Coordinator Name Role Phone Brandt Wong MD Primary Care Prov ider Encounter Details Date Type Department Care Team (Late Contact Info) Description 10/07/2022 Orders Only [facility] MED & PEDS [address] [place] [address] Letitia Otto LPN Social History Tobacco Use [...] Description 10/05/2024 9:30 AM EDT Office Visit [facility] MED & PEDS [address] [place] [address] Brandt Wong MD [address] [place] [address] documented as of this encounter Visit Diagnoses Not on filedocumented in this encounter Additional Health Concerns Assessment Noted Time PHQ-9 Depression Total Score: 0 07/07/19 3:30 PM EST documented as of this encounter Care Teams Research Project Coordinator Relationship Specialty Start Date End Date AlfonsoBrandt Castorena MD [address] [place] [address] PCP - General Internal Medicine 10/14/19 documented as of this encounter
--- OUTSIDE RECORDS SUMMARY | 2024-08-15 17:52 | XMS_ITS | Encounter Summary ---
Author Organization [employer] Address [address] [facility] [address] [place] [address] Care Team Providers Care Maintenance And Repair Worker Name Role Phone Brandt Wong MD Primary Care Prov ider Reason for Visit * Reason Onset Date Comments Nurse Triage 10/21/2023 Encounter Details Date Type Department Care Team ([facility] st Contact Info) Description 10/21/2023 Telephone [facility] MED [facility] PEDS [address] [place], [place] [phone] Brandt Wong MD [address] [place] [address] Nurse Triage Social History Tobacco Use Types [...] 9:30 AM EDT Office Visit [facility] MED & PEDS [address] [place] [address] Brandt Wong MD [address] [place] [address] documented as of this encounter Visit Diagnoses Not on filedocumented in this encounter Additional Health Concerns Assessment Noted Time PHQ-9 Depression Total Score: 0 09/28/19 24 3:36 PM EDT documented as of this encounter Care Teams Maintenance And Repair Worker Relationship Specialty Start Date End Date Brandt Wong MD [address] [place] [address] PCP - General Internal Medicine 10/14/19 documented as of this encounter
--- OUTSIDE RECORDS SUMMARY | 2024-08-15 17:52 | XMS_ITS | Encounter Summary ---
Author Organization [employer] Address [address] [facility] [address] [place] [address] Care Team Providers Care Dairy Laboratory Technician Name Role Phone Brandt Wong MD Primary Care Prov ider Encounter Details Date Type Department Care Team ([facility] st Contact Info) Description 04/06/2023 Telephone C [facility] MED [facility] PEDS [address] [place], [place] [phone] Brandt Wong MD [address] [employer], [place] [phone] Social History Tobacco Use Types Packs/Day Years [...] AM EDT Office Visit [facility] MED & PEDS [address] [place] [address] Brandt Wong MD [address] [place] [address] documented as of this encounter Visit Diagnoses Not on filedocumented in this encounter Additional Health Concerns Assessment Noted Time PHQ-9 Depression Total Score: 0 07/07/19 23 3:30 PM EST documented as of this encounter Care Teams Dairy Laboratory Technician Relationship Specialty Start Date End Date Brandt Wong MD [address] [place] [address] PCP - General Internal Medicine 10/14/19 documented as of this encounter
--- OUTSIDE RECORDS SUMMARY | 2024-08-15 17:52 | XMS_ITS | Encounter Summary ---
Author Organization [employer] Address [address] [facility] [address] [facility] [address] [place] [address] Care Team Providers Care Bundle Breaker Name Role Phone Brandt Wong MD Primary Care Prov ider Reason for Visit * Reason Onset Date Comments new script 11/04/2023 Encounter Details Date Type Department Care Team ([facility] st Contact Info) Description 11/04/[address] [facility] MEDICINE [address] [place] [address] Brandt Wong MD [address] [place] [address] new script Social History Tobacco Use Types [...] AM EDT Tc from pt stated that [facility] has Trulicity 1.5mg and Trulicity 4.5mg. to see if we can send a script until PA for Ozempic is done. PCP DR. Alfonso documented in this encounter Plan of Treatment Upcoming Encounters Date Type Department Care Team (Late st Contact Info) Description 10/05/2024 9:30 AM EDT Office Visit [facility] CHC MED & PEDS [address] [place] [address] Brandt Wong MD [address] [place] [address] documented as of this encounter Visit Diagnoses Not on filedocumented in this encounter Additional Health Concerns Assessment Noted Time PHQ-9 Depression Total Score: 0 09/28/19 24 3:36 PM EDT documented as of this encounter Care Teams Bundle Breaker Relationship Specialty Start Date End Date Brandt Wong MD [address] [place] [address] PCP - General Internal Medicine 10/14/19 documented as of this encounter
--- OUTSIDE RECORDS SUMMARY | 2024-08-15 17:52 | XMS_ITS | Encounter Summary ---
Author Organization [employer] Address [address] [facility] [address] [place] [address] Care Team Providers Care Lorry Weigher Name Role Phone Brandt Wong MD Primary Care Prov ider Encounter Details Date Type Department Care Team ([facility] st Contact Info) Description 06/09/2023 Orders Only [facility] CHC MED & PEDS [address] [place], [place] [phone] Brandt Wong MD [address] [place], [place] [phone] Social History Tobacco Use Types Packs/Day Years [...] Description 10/05/2024 9:30 AM EDT Office Visit [facility] MED & PEDS [address] [place] [address] Brandt Wong MD [address] [place] [address] documented as of this encounter Visit Diagnoses Not on filedocumented in this encounter Additional Health Concerns Assessment Noted Time PHQ-9 Depression Total Score: 0 07/07/19 23 3:30 PM EST documented as of this encounter Care Teams Lorry Weigher Relationship Specialty Start Date End Date Brandt Wong MD [address] [place] [address] PCP - General Internal Medicine 10/14/19 documented as of this encounter
--- OUTSIDE RECORDS SUMMARY | 2024-08-15 17:52 | XMS_ITS | Clinical Summary ---
Author Organization [employer] Address [address] [facility] 7[address] [place] [address] Care Team Providers Care General Machinist Name Role Phone Brandt Wong MD Primary [...] day. 28 tablet 3 025 2025 Active drospirenone-ethi nyl estradiol-levomef olate calcium (Stephanie Leija) 3-0.02-0.451 MG Take 1 tablet by mouth Once per day. 28 tablet 11 025 2024 Discontinued Active Problems Problem Noted Date Diagnosed Date Iron deficiency anemia 04/25/2023 Assessment & Plan (03/08/2024 2:14 PM EDT): New labs will be ordered for guidane of therdey Assessment & Plan (04/25/2023 4:16 PM EST): [...] order Primary hypertension 07/07/2022 Assessment & Plan (07/27/2024 4:03 PM EDT): Controlled, keep low sodium diet and exercise as tolerated, follow up in 3 months Assessment & Plan (03/08/2024 2:13 PM EDT): [...] 2 diabetes mellitus 02/24/2018 Assessment & Plan (07/27/2024 4:11 PM EDT): Improving, patient on maximum dose of trulicity, continue low carb/no sugar diet, continue weight loss, follow up in 3 months Assessment & Plan (03/08/2024 2:13 PM EDT): [...] pharmacy to check Availability Will refer to [facility] for eye exam Assessment & Plan (04/25/2023 [...] Encounters Date Type Department Care Team Description 08/10/[address] [address] Brandt Wong MD Prior Authorization 07/20/[address] [address] Brandt Wong MD Results 07/20/[address] [address] Brandt Wong MD Prior Authorization 07/18/2024 11:30 AM EST Office Visit [address] [address] Cony Cloud CNM Abnormal uterine bleeding (Primary Dx); Screening examination for venereal disease; Family planning counseling 07/18/2024 Travel 07/17/2024 Telephone [facility] [address] [place] [phone] Brandt Wong MD Nurse Triage 07/10/2024 3:30 PM EST Telemedicine [facility] [address] [place] [address] Brandt Wong MD Primary hypertension (Primary Dx); Type 2 diabetes mellitus with hyperglycemia, without long-term current use of insulin ([facility]) 07/10/2024 Travel 07/09/2024 Telephone [facility] [address] [place] [address] Brandt Wong MD chart prep 07/04/2024 Telephone [facility] [address] [place] [phone] Brandt Wong MD Appointment Request 07/03/2024 Telephone [facility] [address] [place] [address] [place]osa [place] August06/29/2024 Orders Only [facility] [address] [place] [address] Brandt Wong MD 06/25/[address] [address] Brandt Wong MD Medication Question 05/21/2024 Refill [facility] [address] [place] [address] Brandt Wong MD from Last 3 Months [...] AM EDT Office Visit [facility] [address] [place] [address] Brandt Wong MD [address] [place] [address] Health Maintenance Due Date Last Done Comments [...] PCV) 11/24/2019 11/23/2018 COVID-19 Vaccine (3 - season) 2024 01/18/2021, 11/23/2020 Influenza Vaccine (#1) 2024 Diabetes: Urine Protein Screening 03/25/2024 03/25/2023, 03/02/2023, 07/21/2021 Dental X-Ray: Bitewings 08/23/2024 08/23/19 24, 09/11/2018, 05/12/2016, Additional history exists Diabetes: Hemoglobin A1C 09/08/202403/10/2 024, 03/02/2023, 07/21/2021, Additional history exists Depression Screening 09/27/2024 09/28/2023, [...] Procedure Name Priority Date/Time Associated Diagnosis Comments US PELVIS TRANSVAGINAL Urgent 08/15/2024 4:13 PM EDT Abnormal uterine bleeding TSH W/REFLEX TO FT4 Routine 07/18/2024 1 2:06 PM EST Abnormal uterine bleeding TRICHOMONAS VAGINALIS RNA, QUALITATIVE, TMA Routine 07/18/2024 11:57 AM EST Screening examination for venereal disease CHLAMYDIA/N. GONORRHOEAE RNA, TMA, UROGENITAL Routine 07/18/2024 11:57 AM EST Screening examination for venereal disease POCT HEMOGLOBIN Routine 07/18/2024 11:49 AM EST Abnormal uterine bleeding POCT , URINE Routine 07/18/2024 11:48 AM EST Abnormal uterine bleeding BI MAMMOGRAM SCREENING TOMOSYNTHESIS BILATERAL Routine 04/09/2024 3:00 PM EST HEMOGLOBIN A1C Routine 03/10/2024 10:04 AM EDT Type 2 diabetes mellitus with hyperglycemia, without long-term current use of insulin (CMS/HCC) LIPID PANEL, STANDARD Routine 03/10/2024 10:04 AM [...] Recently Relevant to Health Maintenance Results * US Pelvis Transvaginal (08/15/2024 4:13 PM EDT) Anatomical Region Laterality Modality Pelvis Ultrasound 08/15/2024 4:13 PM EDT Narrative 08/15/2024 4:45 PM EDT ? [facility] ?[address] ?[place] [address] ? Ultrasound Report ? Signed ? Patient: Naranjo,Martha ?MR#: [id number] ? : 1980 ?Acct:[id number] ? Age/Sex: 44 / F ?ADM Date: 08/15/24 ? Loc: HO.US ? Attending Dr: Cony Cloud CNM ? Ordering Physician: CONY CLOUD CNM ?? Date of Service: 08/15/24 ?? Procedure(s): US pelvic and transvaginal ?? Accession Number(s): [id number] ? cc: Brandt Wong MD; CONY CLOUD CNM ? EXAMINATION: ? US PELVIS ? CLINICAL INFORMATION: ? Abnormal uterine bleeding. ? COMPARISON: ?? None available. ? TECHNIQUE: ?? Ultrasound of the pelvis is performed using both transabdominal and ?? transvaginal transducers along with Doppler. Transvaginal imaging is ?? performed due to inadequate visualization transabdominally. ? FINDINGS: ?? As per technologist note, very limited exam with limited views due to ?? patient body habitus, and bowel gas. ? Uterus: ?? The uterus is anteverted and measures 13.5 x 5.6 x 6.9 cm. ? Normal-appearing cervix. Small to both and cyst. ? The double wall endometrial thickness could not be measured or well ?? visualized due to study limitations. ? There is very limited visualization of the uterus. ? Adnexa: ?? There is no pelvic ascites or fluid collection. ? Right ovary could not be definitively identified. ? Left ovary could not be definitively identified. ? US/US pelvic and transvaginal ?? IMPRESSION: ?? Extremely limited exam as detailed, per technologist note. ?? Nonvisualization of the endometrial canal, majority of the uterus, and ?? both ovaries. ?? No free fluid identified. ? Electronically signed by: ??Sanjay Velasco MD ??08/15/2024 04:42 PM EDT RP ? Dictated By: ?Sanjay Velasco MD ? Signed By: ?<Electronically signed by Sanjay Velasco MD in OV> ?08/15/24 1642 ? DD/ 1613 ? TD/TT: 08/15/24 1620 ? Software Design Analyst: ? Procedure Note Donotmarshater, Image - 08/15/[address] [address] Ultrasound Report Signed Patient: Pippa Naranjo#: [id number] : 1980Acct:[id number] Age/Sex: 44 / FADM Date: 08/15/24 Loc: HO.US Attending Dr: Cony Cloud CNM Ordering Physician: CONY CLOUD CNM Date of Service: 08/15/24 Procedure(s): US pelvic and transvaginal Accession Number(s): [id number] cc: Brandt Wong MD; CONY CLOUD CNM EXAMINATION: US PELVIS CLINICAL INFORMATION: Abnormal uterine bleeding. COMPARISON: None available. TECHNIQUE: Ultrasound of the pelvis is performed using both transabdominal and transvaginal transducers along with Doppler. Transvaginal imaging is performed due to inadequate visualization transabdominally. FINDINGS: As per technologist note, very limited exam with limited views due to patient body habitus, and bowel gas. Uterus: The uterus is anteverted and measures 13.5 x 5.6 x 6.9 cm. Normal-appearing cervix. Small to both and cyst. The double wall endometrial thickness could not be measured or well visualized due to study limitations. There is very limited visualization of the uterus. Adnexa: There is no pelvic ascites or fluid collection. Right ovary could not be definitively identified. Left ovary could not be definitively identified. US/US pelvic and transvaginal IMPRESSION: Extremely limited exam as detailed, per technologist note. Nonvisualization of the endometrial canal, majority of the uterus, and both ovaries. No free fluid identified. Electronically signed by: Sanjay Velasco MD 08/15/2024 04:42 PM EDT Dictated By: Sanjay Velasco MD Signed By: <Electronically signed by Sanjay Velasco MD in OV> 08/15/24 1642 DD/ 1613 TD/TT: 08/15/24 1620 Software Design Analyst: Cony MAJANO IMG US PROCEDURES Final R esult * TSH W/Reflex to FT4 (07/18/2024 12:06 PM EST) Pathologist [facility] TSH reflex Free T4 0.97 0.32 - 4.0 uIU/mL [facility] Blood Venous blood specimen / Unknown 07/18/2024 12:06 PM EST 07/18/2024 1:14 PM EST Cony MAJANO LAB BLOOD ORDERABLES Karen l Result Performing Organization Address [facility] de Phone Number [facility] [address] [place] [phone] * Trichomonas RNA (Urine/Vaginal) (07/18/2024 11:57 AM EST) Pathologist [facility] Trichomas vaginalis RNA, QL, TMA NOT DETECTED NOT DETECTED [facility] Comment:For additional infor mation, please refer tohttp://education.Involvio/faq/Trichomonastma(This link is being provided for informational/educational purposes only.)THIS TEST WAS PERFORMED AT:[address] [place] [phone] HENDERSON MD Swab 07/18/2024 11:5 7 AM EST 07/18/2024 5:26 PM EST Cony Cloud [facility] BODY FLUIDS AND STOOL S ORDERABLES Final Result Performing Organization Address [facility] de Phone Number [facility] [address] [place] [phone] * Chlamydia/N. Gonorrhoeae RNA, TMA, Vagina (07/18/2024 11:57 AM EST) Pathologist [facility] CT PCR NOT DETECTED Not Detect. [facility] Comment:A not detected test result does not exclude the possibilityof infection because test results can be affected byimproper specimen collection, concurrent antibiotic therapy,or the number of organisms in the specimen which may bebelow the sensitivity of the test. As with many diagnostictests, results from the Xpert CT/NG assay should beinterpreted in conjunction with other laboratory andclinical data available to the clinician.Xpert CT/NG performance has not been evaluated in patientsless than 14 years of age. The assay should not be used forthe evaluationof suspected sexual abuse or for other medico-legalindications. Additional testing is recommended in anycircumstance when false positive or false negative resultscould lead to adverse medical, social or psychologicalconsequences. NG PCR NOT DETECTED Not Detect. [facility] Comment:A not detected test result does not exclude the possibilityof infection because test results can be affected byimproper specimen collection, concurrent antibiotic therapy,or the number of organisms in the specimen which may bebelow the sensitivity of the test. As with many diagnostictests, results from the Xpert CT/NG assay should beinterpreted in conjunction with other laboratory andclinical data available to the clinician.Xpert CT/NG performance has not been evaluated in patientsless than 14 years of age. The assay should not be used forthe evaluationof suspected sexual abuse or for other medico-legalindications. Additional testing is recommended in anycircumstance when false positive or false negative resultscould lead to adverse medical, social or psychologicalconsequences. Swab Vaginal structure / Unknown 07/18/2024 11:57 AM EST 07/18/2024 5:26 PM EST Narrative [facility] - 07/19/2024 1:44 PM EST Vaginal us Cony Cloud CNM LAB MICROBIOLOGY - GENERA L ORDERABLES Final Result [facility] [address] [place] [phone] * POCT hemoglobin docked device (07/18/2024 11:49 AM EST) Hemoglobin 14.1 12.0 - 15.0 QC Media Lot # [id number] Lot# Expiration Date [id number] Blood 07/18/2024 11:4 9 AM EST Cony MAJANO POINT OF CARE TEST ENTER/ EDIT ORDERABLES Final Result * POCT , urine manually resulted (07/18/2024 11:48 AM EST) Preg Test, Ur Negative Negative, Indeterminate, None Detected, Invalid, Specimen unsatisfactory for evaluation, Weakly Positive QC Media Lot # [id number] Lot# Expiration Date [id number] Urine 07/18/2024 11:4 8 AM EST Cony MAJANO POINT OF CARE TEST ENTER/ EDIT ORDERABLES Final Result * BI Mammogram Screening Tomosynthesis Bilateral (04/09/2024 3:00 PM EST) Anatomical Region Laterality Modality Breast Bilateral Mammography 04/09/2024 3:00 PM EST Narrative 04/19/2024 9:25 AM EST ? [facility] ? [address] ?[place] [address] ? Mammography Report ? Signed ? Patient: Naranjo,Martha ?MR#: [id number] ? : 1980 ?Acct:[id number] ? Age/Sex: 44 / F ?ADM Date: 11/25/24 ? Loc: HO.MAMMO ? Attending Dr: Brandt Robertson MD ? Ordering Physician: Brandt Wong MD ?Res ?? ults: 1Negative ? Date of Service: 04/09/24 ?Follow Up: 1 Year From Orig ?? inal Mammogram ? Procedure(s): MM tomosynthesis screening BI ?? Accession Number(s): [id number] ? cc: Brandt Wong MD ? EXAMINATION: [...] next mammogram. ? Electronically signed by: ??Jada Harleenalbania DO ??04/19/2024 09:22 AM EST ?? RP ? Dictated By: ?Jada Cohn DO ? Signed By: ?<Electronically signed by Jada Cohn, DO in OV> ? 04/19/24 0922 ? DD/ 1500 ? TD/TT: 04/09/24 1533 ? Software Design Analyst: ? Procedure Note Kate, Image - 12/05/2024 [facility] [address] [place] [address] Dr. [place], [place] [address] Mammography Report Signed Patient: Pippa Naranjo#: [id number] : 1980Acct:[id number] Age/Sex: 44 / FADM Date: 04/09/24 Loc: HO.MAMMO Attending Dr: Brandt Robertson MD Ordering Physician: Brandt Wong ults: 1Negative Date of Service: 04/09/24Follow Up: 1 Year From Orig ina Mammogram Procedure(s): MM tomosynthesis screening BI Accession Number(s): [id number] cc: Brandt Wong MD EXAMINATION: MM SCREENING [...] 04/19/24 0922 DD/ 1500 TD/TT: 04/09/24 1533 Software Design Analyst: us Brandt Robertson MD IMG BI PROCEDURES Edited Result - Final * Hemoglobin A1c (03/10/2024 10:04 AM EDT) Hemoglobin A1c 5.9 <6.0 % [facility] Comment:Hemoglobin A1C Refer ence Range Adults: 4.8 - 6.0 % Non diabetic: < 6.0 % Goal: < 7.0 %Additional Action Suggested: > 8.0 %Note: Hemoglobin A1c results are invalid for patients with abnormal amounts of HbF. Blood transfusions may impact the HbA1c concentration in the patient sample. Estimated Average Glucose 123 mg/dL [facility] Comment:eAG = Estimated ave rage glucose which is %A1C expressed asaverage glucose, using the formula of the L7D-YebatoqCfsufyv Glucose study (ADAG), Diabetes Care, Vol.31,#8,Dec. 2007 Blood Venous blood specimen / Unknown 03/10/2024 10:04 AM EDT 03/10/2024 10:04 AM EDT us Brandt Robertson MD LAB BLOOD ORDERABL ES Final Result [facility] [address] [place] [phone] * Lipid Panel, Standard (03/10/2024 10:04 AM EDT) Triglycerides 83 <150 mg/dL [facility] Comment:Desirable Triglyceri de: less than 150 mg/dLBorderline High Triglyceride 150-199 mg/dLHigh Triglyceride: 200-499 mg/dLVery High Triglyceride: greater than or equal to 5OO mg/dL Cholesterol 143 <200 mg/dL [facility] Comment:Desirable Cholestero l: less than 200 mg/dLBorderline High Cholesterol: 200-239 mg/dLHigh Cholesterol: greater than 239 mg/dL LDL Cholesterol Calculated 70 <100 mg/dL [facility] Comment:Desirable LDL: less than 100 mg/dLNear Optimal/Above Optimal LDL: 110- 129 mg/dLBorderline High LDL: 130-159 mg/dLHigh LDL: 160-189 mg/dLVery High LDL: greater than or equal to 190 mg/dL HDL Cholesterol 57 >40 mg/dL [facility] Comment:Desirable HDL: great er than 40 mg/dL Note: This HDL assay may give artificially low results in patients with liver disease. Blood Venous blood specimen / Unknown 03/10/2024 10:04 AM EDT 03/10/2024 10:04 AM EDT Brandt Robertson MD LAB BLOOD ORDERABL ES Final Result Performing Organization Address [facility]/ZIP Co de Phone Number [facility] [address] [place] [address] [phone] * Hepatitis C Antibody with Reflex to HCV, RNA, Quantitative, Real-Time PCR (03/08/2024 1:47 PM EDT) Hepatitis C Antibody Nonreactive Nonreactive [facility] Comment:Antibodies to HCV no t detected; does not exclude early acuteHCV infection. Blood Venous blood specimen / Unknown 03/08/2024 1:47 PM EDT 03/08/2024 2:21 PM EDT Brandt Robertson MD LAB BLOOD ORDERABL ES Final Result Performing Organization Address [facility]/ZIP Co de Phone Number [facility] [address] [place] [phone] * HIV-1/2 Antigen and Antibodies, Fourth Generation, with Reflexes (03/08/2024 1:47 PM EDT) HIV AB/AG Nonreactive Nonreactive [facility] Comment:HIV-1 p24 Ag and/or HIV-1/HIV-2 Ab not detected.A test result that is nonreactive does not exclude thepossibility of exposure to or infection with HIV-1 and/orHIV-2. Nonreactive results in this assay for individualswith prior exposure to HIV-1 and/or HIV-2 may be due toantigen and antibody levels that are below the limit ofdetection of this assay.The [employer] HIV Ag/Ab Combo assay result andsupplemental assay results should be interpreted inconjunction with the patient's clinical presentation,history and other laboratory results. If the results areinconsistent with clinical evidence, additional testing issuggested to confirm the result. Blood Venous blood specimen / Unknown 03/08/2024 1:47 PM EDT 03/08/2024 2:21 PM EDT us Brandt Robertson MD LAB BLOOD ORDERABL ES Final Result Performing Organization Address [facility]/ZIP Co de Phone Number [facility] [address] [place] [phone] * HPV mRNA E6/E7 w/Reflex to HPV Genotypes 16, 18/45 (09/08/2023 1:33 PM EDT) HPV nRNA E6/E7 Not Detected Not Detected [facility] Comment:Methodology: Transcr iption-Mediated AmplificationThis assay detects E6/E7 viral messenger RNA (mRNA) from 14high-risk HPV types (16,18,31,33,35,39,45,51,52,56,58,59,66,68).Cervical sources are required for HPV testing.If a vaginal source from a patient who has had atotal hysterectomy with removal of cervix wassubmitted, please contact the testing laboratoryfor alternative testing options.For additional information, please refer tohttp://education.Involvio/faq/JOV720c6(This link if provided for information/educational purposes only.)THIS TEST WAS PERFORMED AT:[address] [place] [phone] HENDERSON MD HPV mRNA E6/E7 TNP [facility] HPV 16 RNA [facility] HPV 18/45 RNA [facility] 09/08/2023 1:33 PM EDT 09/09/2023 7:30 AM EDT us Cony Cloud CNM LAB CYTOLOGY ORDERABLES F inal Result Performing Organization Address [facility]/ZIP Co de Phone Number [facility] [address] [place] [phone] * Pap Smear (09/08/2023 1:33 PM EDT) Swab Cervix uteri structure / Unknown 09/08/2023 1:33 PM EDT 09/09/2023 7:30 AM EDT [facility] - 09/26/2023 11:58 AM EDT ----- ------- Name: Martha Naranjo ?Age/Sex: 43/F ? : 1980 Unit#: [id number] ?? Attend Dr: CONY CLOUD Rubén ?Re09/08/23 ?Status: DEP REF ? Location: HO.CLNP ? Disch: ? ----- ------- SPEC : [id number] ? RECD: 09/09/23-729 ? STATUS: ??SOUT ? REQ NUM: [id number] ? DIPIKA: 09/08/23-3 ? SUBM DR: CONY CLOUD CNM ? ENTERED: ??09/09/23-915 ?SP TYPE: Pap Smr ?OTHR : ? [...] 66, 68) ?? HPV testing performed by [facility], [place], [place]. ??See reference laboratory ?? portion of the EMR for entire report. ?Clinical Information LMP: Unknown date Previous PAP test: Unknown date/findings ? Material Received ?? ThinPrep-Vaginal/Cervical ----- ------- Signed (signature on file) ELENITA Vega (ASCP) 09/26/23 1158 ? ----- ------- ? END OF REPORT ? us Cony Cloud [facility] CYTOLOGY ORDERABLES F inal Result Performing Organization Address [facility] Co de Phone Number [facility] [address] [place], [place] [phone] * Albumin, Random Urine W/Creatinine (03/25/2023 12:47 PM EST) Creatinine, Urine 71.41 mg/dL [facility] Microalbumin Urine 11.0 mg/L [facility] Microalbum Creatinine Ratio Ur 15.4 <30 ug/mg cr [facility] Comment:Albumin/Creatinine R atio Reference Ranges: Normal: < 30 ug/mg creatinine Microalbuminuria: 30 - 300 ug/mg creatinineClinical Albuminuria: > 300 ug/mg creatinine 03/25/2023 12:4 7 PM EST 03/25/2023 2:21 PM EST us Brandt Robertson MD LAB URINE ORDERABL ES Final Result Performing Organization Address [facility] Co de Phone Number [facility] [address] [place] [phone] from Last 3 Months or Most Recently Relevant to Health Maintenance Insurance [employer] Care Teams General Machinist Relationship Specialty Start Date End Date Brandt Wong MD [address] [place] [phone] PCP - General Internal Medicine 10/14/19
--- OUTSIDE RECORDS SUMMARY | 2024-08-15 17:52 | XMS_ITS | Encounter Summary ---
Author Organization [employer] Address [address] [facility] [address] [place] [address] Care Team Providers Care Whistle Punk Name Role Phone Brandt Wong MD Primary Care Prov ider Reason for Visit * Reason Onset Date Comments Prior Authorization 07/20/2024 Encounter Details Date Type Department Care Team ([facility] st Contact Info) Description 07/20/2024 Telephone [facility] [address] [place] [address] Brandt Wong MD [address] [place] [address] Prior Authorization Social History Tobacco Use Types Packs/Day Years [...] encounter Miscellaneous Notes * Telephone Encounter - Eden Mazariegos - 07/20/2024 1:46 PM EST Tc from pt, states PA needed for Trulicity. documented in this encounter Plan of Treatment Upcoming Encounters Date Type Department Care Team (Late st Contact Info) Description 10/05/2024 9:30 AM EDT Office Visit [facility] [address] [place] [address] Brandt Wong MD [address] [place] [address] documented as of this encounter Visit Diagnoses Not on filedocumented in this encounter Additional Health Concerns Assessment Noted Time PHQ-9 Depression Total Score: 0 09/28/19 24 3:36 PM EDT documented as of this encounter Care Teams Whistle Punk Relationship Specialty Start Date End Date Brandt Wong MD [address] [place] [address] PCP - General Internal Medicine 10/14/19 documented as of this encounter
--- OUTSIDE RECORDS SUMMARY | 2024-08-15 17:52 | XMS_ITS | Encounter Summary ---
Author Organization [employer] Address [address] [facility] 7t [place] [address] Care Team Providers Care Home Care And Home Health Aides Teacher Name Role Phone Brandt Wong MD Primary Care Prov ider Reason for Visit * Reason Onset Date Comments Prior Authorization 08/10/2024 Encounter Details Date Type Department Care Team ([facility] st Contact Info) Description 08/10/2024 Telephone [facility] [address] [place] [address] Brandt Wong MD [address] [place] [address] Prior Authorization Social History Tobacco Use Types [...] encounter Miscellaneous Notes * Telephone Encounter - Elen Tan LPN - 08/14/2024 1:49 PM EDT Lead Custodian spoke with pt Tc from pt requesting a PA for med dulaglutide (Trulicity) 4.5 MG/0.5ML solution pen-injector. If any questions contact pt at [phone] * Telephone Encounter - Donn Waldron - 08/10/2024 3:36 PM EDT Tc from pt requesting a PA for med dulaglutide (Trulicity) 4.5 MG/0.5ML solution pen-injector. If any questions contact pt at [phone] documented in this encounter Plan of Treatment Upcoming Encounters Date Type Department Care Team (Late st Contact Info) Description 10/05/2024 9:30 AM EDT Office Visit [facility] [address] [place] [address] Brandt Wong MD [address] [place] [address] documented as of this encounter Visit Diagnoses Not on filedocumented in this encounter Additional Health Concerns Assessment Noted Time PHQ-9 Depression Total Score: 0 09/28/19 24 3:36 PM EDT documented as of this encounter Care Teams Home Care And Home Health Aides Teacher Relationship Specialty Start Date End Date AlfonsoBrandt Castorena MD [address] [place] [id number] PCP - General Internal Medicine 10/14/19 documented as of this encounter
--- OUTSIDE RECORDS SUMMARY | 2024-08-15 17:52 | XMS_ITS | Encounter Summary ---
Author Organization [employer] Address [address] [facility] 7t [place] [address] Care Team Providers Care Yard Operator Name Role Phone Brandt Wong MD Primary Care Prov ider Reason for Visit * Reason Onset Date Comments Appointment Request 07/04/2024 Encounter Details Date Type Department Care Team ([facility] st Contact Info) Description 07/04/2024 Telephone [facility] [address] [place], [place] [phone] Brandt Wong MD [address] [place] [address] Appointment Request Social History Tobacco Use Types [...] Description 10/05/2024 9:30 AM EDT Office Visit [facility] [address] [place] [address] Brandt Wong MD [address] [place] [address] documented as of this encounter Visit Diagnoses Not on filedocumented in this encounter Additional Health Concerns Assessment Noted Time PHQ-9 Depression Total Score: 0 09/28/19 24 3:36 PM EDT documented as of this encounter Care Teams Yard Operator Relationship Specialty Start Date End Date Brandt Wong MD [address] [place] [address] PCP - General Internal Medicine 10/14/19 documented as of this encounter
--- OUTSIDE RECORDS SUMMARY | 2024-08-15 17:52 | XMS_ITS | Encounter Summary ---
Author Organization [employer] Address [address] [facility] 7t [place] [address] Care Team Providers Care Overlock Sleeve Setter Name Role Phone Brandt Wong MD Primary Care Prov ider Encounter Details Date Type Department Care Team ([facility] Contact Info) Description 06/10/2022 Orders Only [facility] [address] [place] [address] Brandt Wong MD [address] [place], [place] [phone] Irritable bowel syndrome with both constipation and [...] 9:30 AM EDT Office Visit [facility] [address] [place], [place] [phone] Brandt Wong MD [address] [place] [address] documented as of this encounter Visit Diagnoses Diagnosis Irritable bowel syndrome with both constipation and diarrhea- Primary documented in this encounter Care Teams Overlock Sleeve Setter Relationship Specialty Start Date End Date Brandt Wong MD [address] [place] [id number] PCP - General Internal Medicine 10/14/19 documented as of this encounter
--- OUTSIDE RECORDS SUMMARY | 2024-08-15 17:52 | XMS_ITS | Encounter Summary ---
Author Organization [employer] Address [address] [facility] [address] [place] [address] Care Team Providers Care Practice Business Asst Name Role Phone Brandt Wong MD Primary Care Prov ider Encounter Details Date Type Department Care Team ([facility] st Contact Info) Description 04/26/2023 Orders Only [facility] [address] [place], [place] [phone] Brandt Wong MD [address] [place], [place] [phone] Social History Tobacco Use Types Packs/Day Years [...] 10/05/2024 9:30 AM EDT Office Visit [facility] [address] [place] [address] Brandt Wong MD [address] [place] [address] documented as of this encounter Visit Diagnoses Not on filedocumented in this encounter Additional Health Concerns Assessment Noted Time PHQ-9 Depression Total Score: 0 07/07/19 23 3:30 PM EST documented as of this encounter Care Teams Practice Business Asst Relationship Specialty Start Date End Date Brandt Wong MD [address] [place] [address] PCP - General Internal Medicine 10/14/19 documented as of this encounter
--- OUTSIDE RECORDS SUMMARY | 2024-08-15 17:52 | XMS_ITS | Encounter Summary ---
Author Organization [employer] Address [address] [facility] 7[address] [place] [address] Care Team Providers Care Director Of Collections Name Role Phone Brandt Wong MD Primary Care Prov ider Reason for Visit * Reason Onset Date Comments Results 04/05/2023 Encounter Details Date Type Department Care Team ([facility] Contact Info) Description 04/05/2023 Telephone [facility] [address] [place], [place] [phone] Brandt Wong MD [address] [place] [address] Results Social History Tobacco Use Types Packs/Day [...] done on 03/25. Please contact pt at [phone] TC placed to patient regarding above request for lab results. No answer. LM to call us back. Labs have some abnormal results. Patient has follow-up appointment with Dr. Alfonso on 04/25/23. Routing message to Dr. Alfonso for review. * Telephone Encounter - Renetta Sher - 04/05/2023 4:12 PM EST Tc from pt requesting lab results done on 03/25. Please contact pt at [phone] documented in this encounter Plan of Treatment Upcoming Encounters Date Type Department Care Team (Late st Contact Info) Description 10/05/2024 9:30 AM EDT Office Visit [facility] [address] [place] [address] Brandt Wong MD [address] [place] [address] documented as of this encounter Visit Diagnoses Not on filedocumented in this encounter Additional Health Concerns Assessment Noted Time PHQ-9 Depression Total Score: 0 07/07/19 23 3:30 PM EST documented as of this encounter Care Teams Director Of Collections Relationship Specialty Start Date End Date Brandt Wong MD [address] [place] [address] PCP - General Internal Medicine 10/14/19 documented as of this encounter
--- OUTSIDE RECORDS SUMMARY | 2024-08-15 17:52 | XMS_ITS | Encounter Summary ---
Author Organization [employer] Address [address] [facility] 7t [place] [address] Care Team Providers Care Court Reporter Name Role Phone Brandt Wong MD Primary Care Prov ider Encounter Details Date Type Department Care Team (Latest Contact Info) Description 09/22/2018 Abstract [facility] CONVERSIONS Dental, Provider, DDS Social History [...] Description 10/05/2024 9:30 AM EDT Office Visit [facility] [address] [place] [address] Brandt Wong MD [address] [place] [address] documented as of this encounter Visit Diagnoses Not on filedocumented in this encounter Care Teams Court Reporter Relationship Specialty Start Date End Date Brandt Wong MD [address] [place] [address] PCP - General Internal Medicine 10/14/19 documented as of this encounter
== END 2024-08-15 15:48 | disposition home or self-care (01) ==
LOC: HO.US 15:47
PROVIDERS: PCP Internal Medicine; Visit Provider Advanced Practice Midwife
DX: N93.9 Abnormal uterine and vaginal bleeding, unspecified (principal)
CPT/HCPCS: 76830; 76856

== ENCOUNTER → 2024-08-15 15:50 | Outpatient (BNV) | payer OTHER, SELFPAY | PROVIDERS: PCP Internal Medicine; Visit Provider Radiology Diagnostic Radiology | DX: N93.9 Abnormal uterine and vaginal bleeding, unspecified (principal) | CPT/HCPCS: 76830; 76856 ==

== ENCOUNTER 2024-12-23 09:56 | Outpatient (REF) | payer OTHER, SELFPAY | END 2024-12-23 09:57 | disposition home or self-care (01) | LOC: HO.XRAY 09:56 | PROVIDERS: Visit Provider Internal Medicine | DX: Z13.89 Encounter for screening for other disorder (principal) ==

== ENCOUNTER 2024-12-24 14:48 | Outpatient (REF) | payer OTHER, SELFPAY ==
--- NOTE | ~2024-12-24 | XR_ITS ---
EXAMINATION: XR CHEST CLINICAL INFORMATION: bronchits, r/o penumonia COMPARISON: None available. TECHNIQUE: 2 views of the chest were obtained. FINDINGS: No consolidation, pleural effusion or pneumothorax. Cardiomediastinal silhouette size demonstrates a round opacity in the right perihilar region. Mild multilevel thoracic spondylosis. XR/XR chest 2V IMPRESSION: Concerning right perihilar/mediastinal mass. Electronically signed by: Yovani Sullivan MD 12/24/2024 03:23 PM EDT
== END 2024-12-24 14:49 | disposition home or self-care (01) ==
LOC: HO.HHCX 14:48
PROVIDERS: PCP Internal Medicine; Visit Provider Internal Medicine
DX: J40 Bronchitis, not specified as acute or chronic (principal)
CPT/HCPCS: 71046

== ENCOUNTER → 2024-12-24 15:00 | Outpatient (BNV) | payer OTHER, SELFPAY | PROVIDERS: PCP Internal Medicine; Visit Provider Radiology Diagnostic Radiology | DX: J20.9 Acute bronchitis, unspecified (principal) | CPT/HCPCS: 71046 ==